=== PATIENT | female | born 1935 | race Caucasian/White ===

== ENCOUNTER 2019-01-12 14:48 | Observation (INO) | payer MEDICARE, MEDICAID ==
[2019-01-12] MEDS ORDERED: Sodium Chloride 0.9% 10 ML Syringe FLUSH PRN (14:59)
[2019-01-12] MEDS ORDERED: Sodium Chloride 0.9% 1,000 ML IV ONE (15:01)
--- NOTE | 2019-01-12 16:23 | EDM.PDOC ---
ED HPI GENERAL MEDICAL PROBLEM - General Chief Complaint: General Stated Complaint: FELL Time Seen by Provider: 01/12/19 14:52 Source of Information: Reports: Patient, Family History Limitations: Reports: No Limitations - History of Present Illness INITIAL COMMENTS - FREE TEXT/NARRATIVE: Pt. states that she felt lightheaded and fell backwards onto her backside. Denies striking her head. She has been having troubles with lightheadedness and vertigo for some time and is prescribed meclizine for it. Denies any chest pain or shortness of breath prior to the fall. She recalls the entire event. She states that she has only eaten and drank a small amount today. She did injure her back/posterior chest during the fall. Pt. denies any numbness/tingling in extremities or face. She has a history of a prior CVA that has inhibited her ambulation. For weeks to months, the patient has been complaining that her "legs don't work ". There have been discussions with the patient recently that she needs care from a LTC facility. She also complains of fatigue. Denies an bloody stools. No dark/tarry stools. Denies any abdominal pain. No nausea, vomiting, or diarrhea. She has not been chilled. Onset: Today Onset Date: 01/12/19 Location: Reports: Generalized Improves with: Reports: Rest Worsens with: Reports: Movement - Related Data Allergies Allergy/AdvReac Type Severity Reaction Status Date / Time No Known Allergies Allergy Verified 01/12/19 14:54 Home Meds: Home Meds glipiZIDE [Glipizide ER] 10 mg PO DAILY 08/25/15 [History] metFORMIN HCl [Metformin HCl] 1,000 mg PO BID 08/25/15 [History] Acetaminophen 650 mg PO Q4H PRN 05/14/18 [History] Acetaminophen [Tylenol Arthritis] 650 mg PO Q8H PRN 05/14/18 [History] Aspirin 81 mg PO DAILY 05/14/18 [History] Cholecalciferol (Vitamin D3) [D3 Dots] 2,000 unit PO DAILY 05/14/18 [History] Cyanocobalamin (Vitamin B-12) [B-12 Compliance] 1,000 mcg IJ Q30D 05/14/18 [ History] Gabapentin [Neurontin] 400 mg PO BID 05/14/18 [History] Gemfibrozil [Lopid] 600 mg PO BID 05/14/18 [History] Hydrochlorothiazide [Microzide] 12.5 mg PO DAILY 05/14/18 [History] Lisinopril 40 mg PO DAILY 05/14/18 [History] Loratadine [Claritin] 10 mg PO DAILY PRN 05/14/18 [History] Magnesium Oxide 400 mg PO DAILY 05/14/18 [History] Meclizine [Antivert] 25 mg PO BID PRN 05/14/18 [History] Metoprolol Succinate [Toprol XL] 12.5 mg PO DAILY 05/14/18 [History] Pantoprazole Sodium [Protonix] 40 mg PO DAILY 05/14/18 [History] Polyethylene Glycol 3350 [MiraLAX] 17 gm PO DAILY PRN 05/14/18 [History] Simethicone 125 mg PO Q6H PRN 05/14/18 [History] Simvastatin [Zocor] 5 mg PO ASDIRECTED 05/14/18 [History] Warfarin [Coumadin] 2.5 mg PO ASDIRECTED 05/14/18 [History] carBAMazepine [Carbamazepine ER] 400 mg PO BID 05/14/18 [History] carBAMazepine [Equetro] 300 mg PO BID 05/14/18 [History] Past Medical History - Past Health History Medical/Surgical History: Denies Medical/Surgical History HEENT History: Reports: Other (See Below) Cardiovascular History: Reports: Automatic Implantable Cardioverter Defibrillators, CAD, Heart Failure, High Cholesterol, Hypertension, Pacemaker, Other (See Below) Gastrointestinal History: Reports: Diverticulosis Musculoskeletal History: Reports: Osteoarthritis, Osteoporosis Neurological History: Reports: CVA, Neuropathy, Diabetic, Vertigo, Other (See Below) Endocrine/Metabolic History: Reports: Diabetes, Type II Hematologic History: Reports: Anemia, B12 Deficiency, Other (See Below) Oncologic (Cancer) History: Reports: Cervix Dermatologic History: Reports: Other (See Below) - Past Surgical History Female Surgical History: Reports: Hysterectomy - History Comment History Comment: Hypomagnesemia Social & Family History - Family History Family Medical History: Noncontributory - Tobacco Use Smoking Status *Q: Never Smoker - Recreational Drug Use Recreational Drug Use: No ED ROS GENERAL - Review of Systems Review Of Systems: See Below Constitutional: Reports: No Symptoms HEENT: Reports: No Symptoms Respiratory: Reports: No Symptoms Cardiovascular: Reports: No Symptoms Endocrine: Reports: No Symptoms GI/Abdominal: Reports: No Symptoms. Denies: Abdominal Pain, Anorexia, Black Stool, Bloody Stool : Reports: No Symptoms Musculoskeletal: Reports: No Symptoms Skin: Reports: No Symptoms Neurological: Reports: Difficulty Walking, Weakness, Gait Disturbance Psychiatric: Reports: No Symptoms Hematologic/Lymphatic: Reports: No Symptoms Immunologic: Reports: No Symptoms ED EXAM, GENERAL - Physical Exam Exam: See Below Exam Limited By: No Limitations General Appearance: Alert, WD/WN, No Apparent Distress Eye Exam: Bilateral Eye: EOMI, PERRL Throat/Mouth: Normal Inspection, Normal Lips, Normal Teeth, Normal Gums, No Airway Compromise, Other (oral mucosa is dry) Head: Atraumatic, Normocephalic Neck: Normal Inspection, Supple, Non-Tender, Full Range of Motion Respiratory/Chest: No Respiratory Distress, Lungs Clear, Normal Breath Sounds, No Accessory Muscle Use, Other (tenderness and large hematoma noted to R posterior chest wall. No crepitus. ) Cardiovascular: Normal Peripheral Pulses, No Edema, No Gallop, No JVD, No Murmur , No Rub, Irregularly Irregular Peripheral Pulses: 4+: Radial (R) GI/Abdominal: Soft, Non-Tender, No Organomegaly, No Distention, No Mass (Female) Exam: Deferred Rectal (Female) Exam: Deferred Back Exam: Normal Inspection, Full Range of Motion Extremities: Normal Inspection, Normal Range of Motion, Non-Tender, No Pedal Edema, Normal Capillary Refill Neurological: Alert, Oriented, CN II-XII Intact, Normal Cognition, No Motor/ Sensory Deficits, Abnormal Gait (slow and shuffling) Psychiatric: Normal Affect, Depressed Mood Skin Exam: Warm, Dry, Intact, Normal Color, Pallor Lymphatic: No Adenopathy Course - Vital Signs Last Recorded V/S: Last Vital Signs Temp 36.6 C 01/12/19 14:50 Pulse 50 L 01/12/19 14:50 Resp 14 01/12/19 14:50 BP 183/85 H 01/12/19 14:50 Pulse Ox 95 01/12/19 14:50 - Orders/Labs/Meds Orders: Active Orders 24 hr Category Date Time Status EKG Documentation Completion [RC] STAT Care 01/12/19 14:59 Active Chest 1V Frontal [CR] Stat Exams 01/12/19 16:55 Stop Req Sodium Chloride 0.9% [Saline Flush] Med 01/12/19 14:59 Active 10 ml FLUSH ASDIRECTED PRN Peripheral IV Insertion Adult [OM.PC] Routine Oth 01/12/19 14:59 Ordered Medication Orders Sodium Chloride (Saline Flush) 10 ml FLUSH ASDIRECTED PRN PRN Reason: Keep Vein Open Labs: Laboratory Tests 01/12/19 01/12/19 01/12/19 Range/Units 15:58 15:58 15:58 WBC 7.3 (4.0-10.0) x10^3/uL RBC 3.34 L (4.00-5.50) x10^6/uL Hgb 10.3 L (12.0-16.0) g/dL Hct 31.0 L (33.0-47.0) % MCV 92.8 D (78.0-93.0) fL MCH 30.8 (26.0-32.0) pg MCHC 33.2 (32.0-36.0) g/dL RDW Coeff of Tiffany 14.0 (10.0-15.0) % Plt Count 171 D (130-400) x10^3/uL Neut % (Auto) 88.1 H (50.0-80.0) % Lymph % (Auto) 5.5 L (25.0-50.0) % Curry % (Auto) 5.6 (2.0-11.0) % Eos % (Auto) 0.4 (0.0-4.0) % Baso % (Auto) 0.4 (0.2-1.2) % PT 17.3 H (10.0-12.8) SEC INR 1.5 L (2.0-3.5) Sodium 136 (136-145) mmol/L Potassium 5.6 H D (3.5-5.1) mmol/L Chloride 100 (98-107) mmol/L Carbon Dioxide 25 (21-32) mmol/L Anion Gap 16.6 (10-20) mmol/L BUN 41 H (7-18) mg/dL Creatinine 1.4 H (0.55-1.02) mg/dL Est Cr Clr Drug Dosing TNP Estimated GFR (MDRD) 36 Glucose 175 H (74-106) mg/dL Calcium 9.0 (8.5-10.1) mg/dL Corrected Calcium 9.16 (8.5-10.1) mg/dL Phosphorus 2.8 (2.6-4.7) mg/dL Magnesium 1.9 (1.8-2.4) mg/dL Total Bilirubin 0.4 (0.2-1.0) mg/dL AST 10 L (15-37) U/L ALT 11 L (14-59) U/L Alkaline Phosphatase 66 (46-116) U/L Troponin I < 0.017 (<=0.056) ng/mL C-Reactive Protein < 0.2 (<=0.9) mg/dL NT-Pro-B Natriuret Pep 512 H (<=450) pg/mL Total Protein 7.2 (6.4-8.2) g/dL Albumin 3.8 (3.4-5.0) g/dL Globulin 3.4 Albumin/Globulin Ratio 1.12 Urine Color (YELLOW) Urine Appearance (CLEAR) Urine pH (5.0-8.0) Ur Specific [place] Urine Protein (NEGATIVE) mg/dL Urine Glucose (UA) (NEGATIVE) mg/dL Urine Ketones (NEGATIVE) mg/dL Urine Occult Blood (NEGATIVE) Urine Nitrite (NEGATIVE) Urine Bilirubin (NEGATIVE) Urine Urobilinogen (0.2) EU/dL Ur Leukocyte Esterase (NEGATIVE) Urine RBC (NOT SEEN) /HPF Urine WBC (NOT SEEN) /HPF Ur Squamous Epith Cells (NEGATIVE) /HPF Urine Bacteria (NEGATIVE) /HPF Urine Mucus (NEGATIVE) /LPF 01/12/19 Range/Units 16:17 WBC (4.0-10.0) x10^3/uL RBC (4.00-5.50) x10^6/uL Hgb (12.0-16.0) g/dL Hct (33.0-47.0) % MCV (78.0-93.0) fL MCH (26.0-32.0) pg MCHC (32.0-36.0) g/dL RDW Coeff of Tiffany (10.0-15.0) % Plt Count (130-400) x10^3/uL Neut % (Auto) (50.0-80.0) % Lymph % (Auto) (25.0-50.0) % Curry % (Auto) (2.0-11.0) % Eos % (Auto) (0.0-4.0) % Baso % (Auto) (0.2-1.2) % PT (10.0-12.8) SEC INR (2.0-3.5) Sodium (136-145) mmol/L Potassium (3.5-5.1) mmol/L Chloride (98-107) mmol/L Carbon Dioxide (21-32) mmol/L Anion Gap (10-20) mmol/L BUN (7-18) mg/dL Creatinine (0.55-1.02) mg/dL Est Cr Clr Drug Dosing Estimated GFR (MDRD) Glucose (74-106) mg/dL Calcium (8.5-10.1) mg/dL Corrected Calcium (8.5-10.1) mg/dL Phosphorus (2.6-4.7) mg/dL Magnesium (1.8-2.4) mg/dL Total Bilirubin (0.2-1.0) mg/dL AST (15-37) U/L ALT (14-59) U/L Alkaline Phosphatase (46-116) U/L Troponin I (<=0.056) ng/mL C-Reactive Protein (<=0.9) mg/dL NT-Pro-B Natriuret Pep (<=450) pg/mL Total Protein (6.4-8.2) g/dL Albumin (3.4-5.0) g/dL Globulin Albumin/Globulin Ratio Urine Color Dark yellow H (YELLOW) Urine Appearance Clear (CLEAR) Urine pH 6.0 (5.0-8.0) Ur Specific [place] 1.015 Urine Protein 30 H (NEGATIVE) mg/dL Urine Glucose (UA) Negative (NEGATIVE) mg/dL Urine Ketones Negative (NEGATIVE) mg/dL Urine Occult Blood Negative (NEGATIVE) Urine Nitrite Negative (NEGATIVE) Urine Bilirubin Negative (NEGATIVE) Urine Urobilinogen 0.2 (0.2) EU/dL Ur Leukocyte Esterase Negative (NEGATIVE) Urine RBC 0-5 (NOT SEEN) /HPF Urine WBC 0-5 (NOT SEEN) /HPF Ur Squamous Epith Cells Few H (NEGATIVE) /HPF Urine Bacteria Not seen (NEGATIVE) /HPF Urine Mucus Not seen (NEGATIVE) /LPF Meds: Medications Generic Name Dose Route Start Last Admin Trade Name Freq PRN Reason Stop Dose Admin Sodium Chloride 10 ml 01/12/19 14:59 Saline Flush FLUSH ASDIRECTED PRN Keep Vein Open Discontinued Medications Generic Name Dose Route Start Last Admin Trade Name Freq PRN Reason Stop Dose Admin Sodium Chloride 1,000 mls @ 1,000 mls/hr 01/12/19 15:01 01/12/19 15:41 Normal Saline IV 01/12/19 16:00 1,000 mls/hr .BOLUS ONE Administration Departure - Departure Time of Disposition: 17:15 Disposition: Home, Self-Care 01 Condition: Good Clinical Impression: Chest wall contusion, Weakness - Discharge Information - My Orders Last 24 Hours: My Active Orders 01/12/19 14:59 EKG Documentation Completion [RC] STAT Sodium Chloride 0.9% [Saline Flush] 10 ml FLUSH ASDIRECTED PRN Peripheral IV Insertion Adult [OM.PC] Routine 01/12/19 16:55 Chest 1V Frontal [CR] Stat - Assessment/Plan Last 24 Hours: My Active Orders 01/12/19 14:59 EKG Documentation Completion [RC] STAT Sodium Chloride 0.9% [Saline Flush] 10 ml FLUSH ASDIRECTED PRN Peripheral IV Insertion Adult [OM.PC] Routine 01/12/19 16:55 Chest 1V Frontal [CR] Stat Plan: Pt. will be admitted observation. Overall I have no reason for her weakness based on her studies and physical exam today. It sounds as though she has been weak for some time but the symptoms have gotten to the point that daughter feels that she is unsafe at home. I do not have a reason for an acute admission , so at this point she will be admitted observation. PT and OT to see tomorrow. Social work consult to discuss LTC placement this week. Her chest x-ray is pending. All questions were answered. Pt. is a code 1.
[2019-01-12 16:34] LABS: ANION GAP 16.6 mmol/L (10-20); CHLORIDE,CL 100 mmol/L (98-107); SODIUM,NA 136 mmol/L (136-145)
[2019-01-12] MEDS ORDERED: Acetaminophen 500 MG Tab PO ONE (17:09)
[2019-01-12] MEDS ORDERED: Meclizine 25 MG Tab PO PRN (17:20)
[2019-01-12] MEDS ORDERED: Acetaminophen 325 MG Tab PO PRN (17:20)
[2019-01-12] MEDS ORDERED: Iopamidol 612 MG/ML 100 ML Bottle IVPUSH ONE (17:47)
[2019-01-12] MEDS ORDERED: Take Home: Acetaminophen/Codeine 300 MG/30 MG, 5 Tab Pack PO ONE (19:36)
--- NOTE | 2019-01-12 19:39 | CT ---
[id number] CT/CT Chest Abdomen Pelvis W IV EXAM: CT Chest Abdomen Pelvis W IV CLINICAL DATA: FALL, PULMONARY CONTUSION COMPARISON STUDY: None. FINDINGS: Opacity projecting over the left lung on radiograph is consistent with summation artifact from overlapping soft tissue structures. The lungs are clear. No pneumothorax. No effusion, edema, or pneumonia. Cardiomegaly. Coronary artery atherosclerosis. Left chest wall cardiac conduction device in place. Thoracic aorta atherosclerosis. No aneurysm. No evidence of acute aortic injury. Abdomen and pelvis: No solid organ injury. No free fluid in the abdomen or pelvis. Moderate stool burden in the rectum and sigmoid colon. Correlate for constipation. Colonic diverticula. No diverticulitis. No small bowel obstruction or inflammation. No evidence of viscus perforation. Bones and soft tissues: Chronic T8 compression deformity with moderate loss of vertebral body height. No evidence of an acute fracture. IMPRESSION: Lungs are clear. Opacity on radiograph is consistent with summation artifact from overlapping soft tissue structures. Overall, no acute findings in the chest, abdomen, or pelvis. Akash Beyer MD 01/12/19 1938 Thank you for allowing us to participate in the care of your patient.
[2019-01-12] MEDS ORDERED: Lisinopril 20 MG Tab PO SCH (20:00)
[2019-01-12] MEDS ORDERED: metFORMIN 500 MG Tab PO SCH (20:00)
[2019-01-12] MEDS ORDERED: CARBAMAZEPINE 400 MG PO SCH (20:00)
[2019-01-12] MEDS: Gabapentin 400 MG Cap PO SCH (20:29)
[2019-01-12] MEDS: CARBAMAZEPINE 300 MG PO SCH (20:29)
[2019-01-12] MEDS: Gemfibrozil 600 MG Tab PO SCH (20:30)
[2019-01-12] MEDS: Warfarin 5 MG Tab PO SCH (20:30)
[2019-01-13] MEDS: Gemfibrozil 600 MG Tab PO SCH ×2 (06:30→16:57)
[2019-01-13] MEDS: Pantoprazole 40 MG Tab.CR PO SCH (06:30)
[2019-01-13 06:51] LABS: ANION GAP 14.8 mmol/L (10-20)
[2019-01-13] MEDS: CARBAMAZEPINE 300 MG PO SCH ×2 (07:41→19:48)
[2019-01-13] MEDS: Hydrochlorothiazide 12.5 MG Cap PO SCH (07:42)
[2019-01-13] MEDS: Gabapentin 400 MG Cap PO SCH ×2 (07:42→19:48)
[2019-01-13] MEDS: Aspirin 81 MG Tab.Chew PO SCH (07:42)
[2019-01-13] MEDS: glipiZIDE 10 MG Tab.ER PO SCH (07:42)
[2019-01-13] MEDS: Magnesium Oxide 400 MG Tab PO SCH (07:43)
[2019-01-13] MEDS: Metoprolol Succinate 25 MG Tab.ER PO SCH (07:44)
[2019-01-13] MEDS: Cholecalciferol (Vitamin D3) 25 MCG Tab PO SCH (07:45)
[2019-01-13] MEDS ORDERED: Lisinopril 20 MG Tab PO SCH (08:00)
[2019-01-13] MEDS ORDERED: Simvastatin 10 MG Tab PO SCH (08:00)
--- NOTE | 2019-01-13 10:46 | PCM.PN ---
- General Info Date of Service: 01/13/19 Admission Dx/Problem (Free Text): Pt. admitted observation yesterday afternoon due to weakness and fall. Pt. states that she continues to feel weak today. She had a CT chest, abdomen and pelvis yesterday that was negative for acute pathology. Family states that they are unable to help patient with her ADLs and she lives on her own in an apartment so she was admitted observation while the family sets up LTC arrangements. Pt. states that she feels weak and fatigued, but denies any chest pain. No headache. No new focal neuro symptoms. Denies any fever or chills. PT and OT are seeing the patient today and social work will be assisting with placement. Functional Status: Reports: Pain Controlled, Tolerating Diet - Review of Systems General: Reports: No Symptoms HEENT: Reports: No Symptoms Pulmonary: Reports: No Symptoms Cardiovascular: Reports: No Symptoms Gastrointestinal: Reports: No Symptoms Genitourinary: Reports: No Symptoms Musculoskeletal: Reports: No Symptoms Skin: Reports: No Symptoms Neurological: Reports: No Symptoms Psychiatric: Reports: No Symptoms - Patient Data Vitals - Most Recent: Last Vital Signs Temp 35.8 C 01/13/19 10:00 Pulse 50 L 01/13/19 10:00 Resp 15 01/13/19 10:00 BP 135/95 H 01/13/19 10:00 Pulse Ox 95 01/13/19 10:00 Weight - Most Recent: 72.121 kg I&O - Last 24 Hours: Intake & Output 01/12/19 01/13/19 01/13/19 22:59 06:59 14:59 Intake Total 400 300 Output Total 600 Balance -200 300 Lab Results Last 24 Hours: Laboratory Results - last 24 hr 01/12/19 01/12/19 01/12/19 Range/Units 15:58 15:58 15:58 WBC 7.3 (4.0-10.0) x10^3/uL RBC 3.34 L (4.00-5.50) x10^6/uL Hgb 10.3 L (12.0-16.0) g/dL Hct 31.0 L (33.0-47.0) % MCV 92.8 D (78.0-93.0) fL MCH 30.8 (26.0-32.0) pg MCHC 33.2 (32.0-36.0) g/dL RDW Coeff of [place] 14.0 (10.0-15.0) % Plt Count 171 D (130-400) x10^3/uL Neut % (Auto) 88.1 H (50.0-80.0) % Lymph % (Auto) 5.5 L (25.0-50.0) % [place] % (Auto) 5.6 (2.0-11.0) % Eos % (Auto) 0.4 (0.0-4.0) % Baso % (Auto) 0.4 (0.2-1.2) % PT 17.3 H (10.0-12.8) SEC INR 1.5 L (2.0-3.5) Sodium 136 (136-145) mmol/L Potassium 5.6 H D (3.5-5.1) mmol/L Chloride 100 (98-107) mmol/L Carbon Dioxide 25 (21-32) mmol/L Anion Gap 16.6 (10-20) mmol/L BUN 41 H (7-18) mg/dL Creatinine 1.4 H (0.55-1.02) mg/dL Est Cr Clr Drug Dosing TNP Estimated GFR (MDRD) 36 Glucose 175 H (74-106) mg/dL POC Glucose (74-106) mg/dL Calcium 9.0 (8.5-10.1) mg/dL Corrected Calcium 9.16 (8.5-10.1) mg/dL Phosphorus 2.8 (2.6-4.7) mg/dL Magnesium 1.9 (1.8-2.4) mg/dL Total Bilirubin 0.4 (0.2-1.0) mg/dL AST 10 L (15-37) U/L ALT 11 L (14-59) U/L Alkaline Phosphatase 66 (46-116) U/L Troponin I < 0.017 (<=0.056) ng/mL C-Reactive Protein < 0.2 (<=0.9) mg/dL NT-Pro-B Natriuret Pep 512 H (<=450) pg/mL Total Protein 7.2 (6.4-8.2) g/dL Albumin 3.8 (3.4-5.0) g/dL Globulin 3.4 Albumin/Globulin Ratio 1.12 Urine Color (YELLOW) Urine Appearance (CLEAR) Urine pH (5.0-8.0) Ur Specific [place] Urine Protein (NEGATIVE) mg/dL Urine Glucose (UA) (NEGATIVE) mg/dL Urine Ketones (NEGATIVE) mg/dL Urine Occult Blood (NEGATIVE) Urine Nitrite (NEGATIVE) Urine Bilirubin (NEGATIVE) Urine Urobilinogen (0.2) EU/dL Ur Leukocyte Esterase (NEGATIVE) Urine RBC (NOT SEEN) /HPF Urine WBC (NOT SEEN) /HPF Ur Squamous Epith Cells (NEGATIVE) /HPF Urine Bacteria (NEGATIVE) /HPF Urine Mucus (NEGATIVE) /LPF 01/12/19 01/12/19 01/13/19 Range/Units 16:17 20:22 06:29 WBC (4.0-10.0) x10^3/uL RBC (4.00-5.50) x10^6/uL Hgb (12.0-16.0) g/dL Hct (33.0-47.0) % MCV (78.0-93.0) fL MCH (26.0-32.0) pg MCHC (32.0-36.0) g/dL RDW Coeff of [place] (10.0-15.0) % Plt Count (130-400) x10^3/uL Neut % (Auto) (50.0-80.0) % Lymph % (Auto) (25.0-50.0) % [place] % (Auto) (2.0-11.0) % Eos % (Auto) (0.0-4.0) % Baso % (Auto) (0.2-1.2) % PT (10.0-12.8) SEC INR (2.0-3.5) Sodium (136-145) mmol/L Potassium (3.5-5.1) mmol/L Chloride (98-107) mmol/L Carbon Dioxide (21-32) mmol/L Anion Gap (10-20) mmol/L BUN (7-18) mg/dL Creatinine (0.55-1.02) mg/dL Est Cr Clr Drug Dosing Estimated GFR (MDRD) Glucose (74-106) mg/dL POC Glucose 154 H 102 (74-106) mg/dL Calcium (8.5-10.1) mg/dL Corrected Calcium (8.5-10.1) mg/dL Phosphorus (2.6-4.7) mg/dL Magnesium (1.8-2.4) mg/dL Total Bilirubin (0.2-1.0) mg/dL AST (15-37) U/L ALT (14-59) U/L Alkaline Phosphatase (46-116) U/L Troponin I (<=0.056) ng/mL C-Reactive Protein (<=0.9) mg/dL NT-Pro-B Natriuret Pep (<=450) pg/mL Total Protein (6.4-8.2) g/dL Albumin (3.4-5.0) g/dL Globulin Albumin/Globulin Ratio Urine Color Dark yellow H (YELLOW) Urine Appearance Clear (CLEAR) Urine pH 6.0 (5.0-8.0) Ur Specific [place] 1.015 Urine Protein 30 H (NEGATIVE) mg/dL Urine Glucose (UA) Negative (NEGATIVE) mg/dL Urine Ketones Negative (NEGATIVE) mg/dL Urine Occult Blood Negative (NEGATIVE) Urine Nitrite Negative (NEGATIVE) Urine Bilirubin Negative (NEGATIVE) Urine Urobilinogen 0.2 (0.2) EU/dL Ur Leukocyte Esterase Negative (NEGATIVE) Urine RBC 0-5 (NOT SEEN) /HPF Urine WBC 0-5 (NOT SEEN) /HPF Ur Squamous Epith Cells Few H (NEGATIVE) /HPF Urine Bacteria Not seen (NEGATIVE) /HPF Urine Mucus Not seen (NEGATIVE) /LPF 01/13/19 01/13/19 Range/Units 06:33 06:33 WBC 5.4 (4.0-10.0) x10^3/uL RBC 3.36 L (4.00-5.50) x10^6/uL Hgb 10.4 L (12.0-16.0) g/dL Hct 31.6 L (33.0-47.0) % MCV 94.0 H (78.0-93.0) fL MCH 31.0 (26.0-32.0) pg MCHC 32.9 (32.0-36.0) g/dL RDW Coeff of [place]iffany 14.2 (10.0-15.0) % Plt Count 193 (130-400) x10^3/uL Neut % (Auto) 56.8 (50.0-80.0) % Lymph % (Auto) 28.8 (25.0-50.0) % [place] % (Auto) 11.3 H (2.0-11.0) % Eos % (Auto) 2.2 (0.0-4.0) % Baso % (Auto) 0.9 (0.2-1.2) % PT (10.0-12.8) SEC INR (2.0-3.5) Sodium 139 (136-145) mmol/L Potassium 4.8 (3.5-5.1) mmol/L Chloride 102 (98-107) mmol/L Carbon Dioxide 27 (21-32) mmol/L Anion Gap 14.8 (10-20) mmol/L BUN 32 H (7-18) mg/dL Creatinine 1.2 H (0.55-1.02) mg/dL Est Cr Clr Drug Dosing 25.07 Estimated GFR (MDRD) 43 Glucose 101 (74-106) mg/dL POC Glucose (74-106) mg/dL Calcium 9.2 (8.5-10.1) mg/dL Corrected Calcium (8.5-10.1) mg/dL Phosphorus (2.6-4.7) mg/dL Magnesium (1.8-2.4) mg/dL Total Bilirubin (0.2-1.0) mg/dL AST (15-37) U/L ALT (14-59) U/L Alkaline Phosphatase (46-116) U/L Troponin I (<=0.056) ng/mL C-Reactive Protein (<=0.9) mg/dL NT-Pro-B Natriuret Pep (<=450) pg/mL Total Protein (6.4-8.2) g/dL Albumin (3.4-5.0) g/dL Globulin Albumin/Globulin Ratio Urine Color (YELLOW) Urine Appearance (CLEAR) Urine pH (5.0-8.0) Ur Specific [place] Urine Protein (NEGATIVE) mg/dL Urine Glucose (UA) (NEGATIVE) mg/dL Urine Ketones (NEGATIVE) mg/dL Urine Occult Blood (NEGATIVE) Urine Nitrite (NEGATIVE) Urine Bilirubin (NEGATIVE) Urine Urobilinogen (0.2) EU/dL Ur Leukocyte Esterase (NEGATIVE) Urine RBC (NOT SEEN) /HPF Urine WBC (NOT SEEN) /HPF Ur Squamous Epith Cells (NEGATIVE) /HPF Urine Bacteria (NEGATIVE) /HPF Urine Mucus (NEGATIVE) /LPF Med Orders - Current: Current Medications Acetaminophen (Tylenol) 650 mg PO Q4H PRN PRN Reason: Pain Aspirin (Aspirin) 81 mg PO DAILY [facility] Last Admin: 01/13/19 07:42 Dose: 81 mg Cholecalciferol (Vitamin D3) 50 mcg PO DAILY [facility] Last Admin: 01/13/19 07:45 Dose: 50 mcg Cyanocobalamin (Vitamin B12) 1,000 mcg IM Q30D [facility] Gabapentin (Neurontin) 400 mg PO BID [facility] Last Admin: 01/13/19 07:42 Dose: 400 mg Gemfibrozil (Lopid) 600 mg PO BIDAC [facility] Last Admin: 01/13/19 06:30 Dose: 600 mg Glipizide (Glucotrol Xl) 10 mg PO DAILY [facility] Last Admin: 01/13/19 07:42 Dose: 10 mg Hydrochlorothiazide (Hydrochlorothiazide) 12.5 mg PO DAILY [facility] Last Admin: 01/13/19 07:42 Dose: 12.5 mg Lisinopril (Prinivil) 40 mg PO DAILY@1200 [facility] Magnesium Oxide (Magnesium Oxide) 400 mg PO DAILY [facility] Last Admin: 01/13/19 07:43 Dose: 400 mg Meclizine HCl (Antivert) 25 mg PO BID PRN PRN Reason: Dizziness Metoprolol Succinate (Toprol Xl) 12.5 mg PO DAILY [facility] Last Admin: 01/13/19 07:44 Dose: 12.5 mg Carbamazepine Er (300mg Own Med ) 300 mg PO BID [facility] Last Admin: 01/13/19 07:41 Dose: 300 mg Pantoprazole Sodium (Protonix) 40 mg PO ACBREAKFAST [facility] Last Admin: 01/13/19 06:30 Dose: 40 mg Simvastatin (Zocor) 5 mg PO MoWeFr@0800 [facility] Last Admin: 01/13/19 07:43 Dose: 5 mg Sodium Chloride (Saline Flush) 10 ml FLUSH ASDIRECTED PRN PRN Reason: Keep Vein Open Last Admin: 01/12/19 20:29 Dose: 10 ml Warfarin Sodium (Coumadin) 10 mg PO DAILY@2000 [facility] Last Admin: 01/12/19 20:30 Dose: 10 mg Discontinued Medications Acetaminophen (Tylenol Extra Strength) 1,000 mg PO ONETIME ONE Stop: 01/12/19 17:10 Last Admin: 01/12/19 17:16 Dose: 1,000 mg Acetaminophen/Codeine Phosphate (Take Home: Acetam/Codeine 300-30 Mg, 5 Pack) 1 packet PO ONETIME ONE Stop: 01/12/19 19:37 Last Admin: 01/12/19 20:00 Dose: Not Given Sodium Chloride (Normal Saline) 1,000 mls @ 1,000 mls/hr IV .BOLUS ONE Stop: 01/12/19 16:00 Last Admin: 01/12/19 15:41 Dose: 1,000 mls/hr Iopamidol (Isovue-300 (61%)) 100 ml IVPUSH ONETIME ONE Stop: 01/12/19 17:48 Last Admin: 01/12/19 18:26 Dose: 100 ml Lisinopril (Prinivil) 40 mg PO DAILY [facility] Lisinopril (Prinivil) 40 mg PO DAILY [facility] Stop: 01/12/19 21:00 Last Admin: 01/12/19 20:29 Dose: 40 mg Metformin HCl (Glucophage) 1,000 mg PO BIDMEALS [facility] Non-Formulary Medication (Carbamazepine [Carbamazepine Er]) 400 mg PO BID [facility] - Exam General: Alert, Oriented HEENT: Pupils Equal, Pupils Reactive, EOMI, Mucous Membr. Moist/[place] Neck: Supple Lungs: Clear to Auscultation, Normal Respiratory Effort, Other (contusion noted to R posterior chest) Cardiovascular: Regular Rate, Regular Rhythm GI/Abdominal Exam: Normal Bowel Sounds, Soft, Non-Tender, No Organomegaly, No Distention, No Mass (Female) Exam: Deferred Back Exam: Normal Inspection, Full Range of Motion Extremities: Normal Inspection, Normal Range of Motion, Non-Tender, No Pedal Edema, Normal Capillary Refill Peripheral Pulses: 4+: Radial (L) Skin: Warm, Dry, Intact Neurological: No New Focal Deficit, Other (globally weak without acute findings. ) Psy/Mental Status: Alert, Normal Affect, Normal Mood - Problem List & Annotations (1) Chest wall contusion SNOMED Code(s): 37328962 Code(s): S20.219A - CONTUSION OF UNSPECIFIED FRONT WALL OF THORAX, INIT ENCNTR Status: Acute Current Visit: Yes (2) Fall SNOMED Code(s): 4045309, 086506789 Code(s): W19.XXXA - UNSPECIFIED FALL, INITIAL ENCOUNTER Status: Acute Current Visit: Yes (3) Weakness SNOMED Code(s): 44302655 Code(s): R53.1 - WEAKNESS Status: Acute Current Visit: Yes - Problem List Review Problem List Initiated/Reviewed/Updated: Yes - My Orders Last 24 Hours: My Active Orders 01/12/19 14:59 EKG Documentation Completion [RC] STAT Sodium Chloride 0.9% [Saline Flush] 10 ml FLUSH ASDIRECTED PRN Peripheral IV Insertion Adult [OM.PC] Routine 01/12/19 16:56 Patient Status [ADT] Routine 01/12/19 17:08 Chest 1V Frontal [CR] Stat 01/12/19 17:15 Up With Assistance [RC] 01/12/19 17:16 Code Status [Resuscitation Status] Routine 01/12/19 17:17 Consult to Physical Therapy [PT Evaluation and Treatment] [CONS] Routine 01/12/19 17:18 Consult to Case Management/Clinical Research Management Associate [CONS] Routine OT Evaluation and Treatment [CONS] Routine 01/12/19 17:20 Acetaminophen [Tylenol] 650 mg PO Q4H PRN Meclizine [Antivert] 25 mg PO BID PRN 01/12/19 20:00 Gabapentin [Neurontin] 400 mg PO BID Gemfibrozil [Lopid] 600 mg PO BIDAC Warfarin [Coumadin] 10 mg PO DAILY@2000 carBAMazepine [Carbamazepine ER] 300 mg PO BID 01/12/19 20:39 Accu Check [Blood Glucose Check, Bedside] [RC] 07,,,20 01/12/19 Dinner [employer] [place] Diet [DIET] 01/13/19 07:00 Pantoprazole [ProTONIX] 40 mg PO ACBREAKFAST 01/13/19 08:00 Aspirin 81 mg PO DAILY Cholecalciferol (Vitamin D3) [Vitamin D3] 50 mcg PO DAILY Magnesium Oxide 400 mg PO DAILY Metoprolol Succinate [Toprol XL] 12.5 mg PO DAILY Simvastatin [Zocor] 5 mg PO MoWeFr@0800 glipiZIDE [Glucotrol XL] 10 mg PO DAILY hydroCHLOROthiazide 12.5 mg PO DAILY 01/13/19 12:00 Lisinopril [Prinivil] 40 mg PO DAILY@1200 01/21/19 10:00 Cyanocobalamin (Vitamin B12) [Vitamin B12] 1,000 mcg IM Q30D - Plan Plan:: Pt. 48 hour obs admission is up tomorrow afternoon. At the time, pt. will either need to go self pay swing or be discharged. Family is aware of this. PT and OT will work with patient today. Social work is not here until later this afternoon and will meet with patient. Her labs this AM are unchanged. Discussed findings with the patient and family. All questions were answered.
[2019-01-13] MEDS: Lisinopril 20 MG Tab PO SCH (11:28)
[2019-01-13] MEDS ORDERED: Iopamidol 612 MG/ML 100 ML Bottle IVPUSH ONE (17:07)
--- NOTE | 2019-01-13 18:15 | CT ---
[id number] CT/CTA Head EXAM: HEAD CT WITHOUT CONTRAST CT ANGIOGRAM HEAD INDICATION: Forgetfulness. COMPARISON: None. 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 Partial opacification of both sphenoid sinuses including mucosal thickening and fluid with osseous wall hypertrophy suggesting acute on chronic sinusitis. Minor scattered mucosal thickening in the remaining paranasal sinuses. origin left posterior cerebral artery. Dominant left vertebral artery. Scattered hard plaque most significant in the intracranial segment of the left vertebral artery and in the cavernous segment of both internal carotid arteries. No significant stenosis, aneurysm, vessel cut off or other acute findings. IMPRESSION: 1. Mild to moderate generalized atrophy and chronic small vessel ischemic changes. 2. Multifocal atherosclerotic plaque with no significant stenosis, vessel cut off or other acute vascular findings. 3. 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 Jamison Price MD 01/13/19 [id number] Thank you for allowing us to participate in the care of your patient.
[2019-01-13] MEDS: Warfarin 5 MG Tab PO SCH (19:48)
[2019-01-13] MEDS ORDERED: Amoxicillin/Clavulanate K 875-125 MG Tab PO SCH (20:00)
[2019-01-13] MEDS: Amoxicillin/Clavulanate K 500-125 MG Tab PO SCH (20:15)
[2019-01-14] MEDS: Pantoprazole 40 MG Tab.CR PO SCH (06:01)
[2019-01-14] MEDS: Gemfibrozil 600 MG Tab PO SCH (06:01)
[2019-01-14] MEDS: Metoprolol Succinate 25 MG Tab.ER PO SCH (07:30)
[2019-01-14] MEDS: Magnesium Oxide 400 MG Tab PO SCH (07:30)
[2019-01-14] MEDS: glipiZIDE 10 MG Tab.ER PO SCH (07:30)
[2019-01-14] MEDS: Aspirin 81 MG Tab.Chew PO SCH (07:30)
[2019-01-14] MEDS: Hydrochlorothiazide 12.5 MG Cap PO SCH (07:30)
[2019-01-14] MEDS: Amoxicillin/Clavulanate K 500-125 MG Tab PO SCH (07:30)
[2019-01-14] MEDS: Cholecalciferol (Vitamin D3) 25 MCG Tab PO SCH (07:31)
[2019-01-14] MEDS: CARBAMAZEPINE 300 MG PO SCH (07:31)
[2019-01-14] MEDS: Gabapentin 400 MG Cap PO SCH (07:31)
[2019-01-14 10:19] VITALS: PULSE 50
[2019-01-14] MEDS: Lisinopril 20 MG Tab PO SCH (12:00)
[2019-01-14] MEDS ORDERED: CARBAMAZEPINE 400 MG PO PRN (12:15)
[2019-01-14 14:16] VITALS: BP 164/54
[2019-01-14] MEDS ORDERED: Aspirin 81 MG Tab.Chew PO SCH (20:00)
[2019-01-21] MEDS ORDERED: Cyanocobalamin (Vitamin B12) 1,000 MCG/ML SDV IM SCH (10:00)
--- NOTE | 2019-01-23 13:08 | CR ---
[id number] RAD/RAD Chest PA or AP 1V EXAM: RAD Chest PA or AP 1V INDICATION: Fall, posterior CHEST PAIN POST FALL. COMPARISON: May 2018. DISCUSSION: Cardiomegaly and central vascular congestion. Lung hyperinflation, consistent with chronic obstructive pulmonary disease. No pneumothorax. Parenchymal opacity over the left lower lung not seen previously. Finding is nonspecific. Differential diagnosis includes contusion pneumonia, and/or subsegmental atelectasis. IMPRESSION: Left lung base parenchymal opacity not seen previously, described above. Akash Beyer MD 01/23/19 1274 Thank you for allowing us to participate in the care of your patient.
== END 2019-01-14 15:40 | disposition home or self-care (01) ==
LOC: VM.ED 14:48 → VM.MS 16:56
PROVIDERS: ADMIT Physician Assistant; ATTEND Physician Assistant
DX: R53.1 Weakness (principal); R53.83 Other fatigue; S20.219A Contusion of unspecified front wall of thorax, initial encounter; I25.10 Atherosclerotic heart disease of native coronary artery without angina pectoris; I11.0 Hypertensive heart disease with heart failure; I50.9 Heart failure, unspecified; E11.9 Type 2 diabetes mellitus without complications; E78.00 Pure hypercholesterolemia, unspecified; W19.XXXA Unspecified fall, initial encounter; Z95.810 Presence of automatic (implantable) cardiac defibrillator; Z86.73 Personal history of transient ischemic attack (TIA), and cerebral infarction without residual deficits; Z79.84 Long term (current) use of oral hypoglycemic drugs; Z79.82 Long term (current) use of aspirin; Z79.01 Long term (current) use of anticoagulants; Z79.899 Other long term (current) drug therapy
CPT/HCPCS: 36415; 70496; 71045; 71260; 74177; 80048; 80053; 81001; 82962; 83735; 83880; 84100; 84484; 85025; 85610; 86140; 93005; 96360; 97161; 97165; 97530; 97535; 99217; 99220; 99225; 99285; A9270; G0378; J7030; Q9967

== ENCOUNTER 2019-01-14 15:35 | Inpatient (IN) | payer MEDICARE, MEDICAID ==
[2019-01-14] MEDS ORDERED: Loratadine 10 MG Tab PO PRN (16:58)
[2019-01-14] MEDS ORDERED: Polyethylene Glycol 3350 Powder 17 GM Packet PO PRN (16:58)
[2019-01-14] MEDS ORDERED: Meclizine 25 MG Tab PO PRN (16:58)
--- NOTE | 2019-01-14 18:48 | PCM.PN ---
- General Info Date of Service: 01/14/19 Admission Dx/Problem (Free Text): Patient admitted for weakness, falls. - Review of Systems General: Reports: Weakness (improved) HEENT: Reports: No Symptoms Pulmonary: Reports: Shortness of Breath (states this is a chronic finding) Cardiovascular: Reports: No Symptoms Gastrointestinal: Reports: No Symptoms Genitourinary: Reports: No Symptoms Musculoskeletal: Reports: No Symptoms Skin: Reports: No Symptoms Neurological: Reports: No Symptoms Psychiatric: Reports: No Symptoms - Patient Data Vitals - Most Recent: Last Vital Signs Temp 35.8 C 01/14/19 18:30 Pulse 55 L 01/14/19 18:30 Resp BP 129/43 L 01/14/19 18:30 Pulse Ox 98 01/14/19 18:30 Weight - Most Recent: 70.789 kg I&O - Last 24 Hours: Intake & Output 01/14/19 01/14/19 01/14/19 06:59 14:59 22:59 Intake Total 120 Balance 120 Lab Results Last 24 Hours: Laboratory Results - last 24 hr 01/14/19 Range/Units 17:27 POC Glucose 90 (74-106) mg/dL Med Orders - Current: Current Medications Acetaminophen (Tylenol) 650 mg PO Q4H PRN PRN Reason: Pain Amoxicillin/Clavulanate Potassium (Augmentin 500 Mg\125 Mg) 1 tab PO Q12HR [facility] Stop: 01/18/19 08:30 Aspirin (Aspirin) 81 mg PO BEDTIME [facility] Gabapentin (Neurontin) 400 mg PO BID [facility] Gemfibrozil (Lopid) 600 mg PO BIDAC [facility] Glipizide (Glucotrol Xl) 10 mg PO DAILY [facility] Hydrochlorothiazide (Hydrochlorothiazide) 12.5 mg PO DAILY [facility] Lisinopril (Prinivil) 40 mg PO 1200 [facility] Loratadine (Claritin) 10 mg PO DAILY PRN PRN Reason: Allergies Meclizine HCl (Antivert) 25 mg PO BID PRN PRN Reason: Dizziness Metformin HCl (Glucophage) 500 mg PO BID [facility] Metoprolol Succinate (Toprol Xl) 12.5 mg PO DAILY [facility] Carbamazepine [ Equetro] 300 Mg # Ptom# 300 mg PO [facility] Pantoprazole Sodium (Protonix) 40 mg PO DAILY@0700 [facility] Polyethylene Glycol (Miralax) 17 gm PO DAILY PRN PRN Reason: Constipation Simvastatin (Zocor) 5 mg PO MOWEFR@1999 [facility] Discontinued Medications Warfarin Sodium (Coumadin) 2.5 mg PO ASDIRECTED ONE Stop: 01/14/19 17:01 - Exam General: Alert, Oriented, Cooperative HEENT: Pupils Equal, Pupils Reactive, EOMI, Mucous Membr. Moist/[place] Neck: Supple Lungs: Clear to Auscultation, Normal Respiratory Effort Cardiovascular: Regular Rate, Regular Rhythm GI/Abdominal Exam: Normal Bowel Sounds, Soft, Non-Tender, No Organomegaly, No Distention, No Abnormal Bruit, No Mass, Pelvis Stable Back Exam: Normal Inspection, Full Range of Motion Extremities: Normal Inspection, Normal Range of Motion, Non-Tender, No Pedal Edema, Normal Capillary Refill Peripheral Pulses: 2+: Posterior Tibial (L), Posterior Tibial (R), Dorsalis Pedis (L), Dorsalis Pedis (R) Skin: Warm, Dry, Intact Neurological: No New Focal Deficit Psy/Mental Status: Alert, Normal Affect, Normal Mood - Problem List & Annotations (1) Weakness SNOMED Code(s): 88053978 Code(s): R53.1 - WEAKNESS Status: Acute Priority: Medium Current Visit : No - Problem List Review Problem List Initiated/Reviewed/Updated: Yes - Assessment Assessment:: weakness - Plan Plan:: Patient will be transitioned to self pay swing until senior living placement is achieved. Dr. Don to take over in the AM.
[2019-01-14] MEDS: Gabapentin 400 MG Cap PO SCH (19:22)
[2019-01-14] MEDS: Amoxicillin/Clavulanate K 500-125 MG Tab PO SCH (19:22)
[2019-01-14] MEDS: Gemfibrozil 600 MG Tab PO SCH (19:22)
[2019-01-14] MEDS ORDERED: metFORMIN 500 MG Tab PO ONE (20:00)
[2019-01-14] MEDS ORDERED: metFORMIN 500 MG Tab PO SCH (20:00)
[2019-01-14] MEDS: Acetaminophen 325 MG Tab PO PRN (21:08)
[2019-01-14] MEDS: CARBAMAZEPINE 300 MG PO SCH (21:10)
[2019-01-15] MEDS: Acetaminophen 325 MG Tab PO PRN ×3 (02:00→21:27)
[2019-01-15] MEDS: Warfarin 2.5 MG Tab PO ONE ×2 (04:13→07:43)
[2019-01-15] MEDS: Gemfibrozil 600 MG Tab PO SCH ×2 (05:57→06:00)
[2019-01-15] MEDS: Pantoprazole 40 MG Tab.CR PO SCH ×2 (05:57→06:00)
[2019-01-15] MEDS ORDERED: glipiZIDE 10 MG Tab.ER PO SCH (08:00)
[2019-01-15] MEDS ORDERED: Metoprolol Succinate 25 MG Tab.ER PO SCH (08:00)
[2019-01-15] MEDS ORDERED: Hydrochlorothiazide 12.5 MG Cap PO SCH (08:00)
[2019-01-15] MEDS ORDERED: metFORMIN 500 MG Tab PO SCH (08:00)
[2019-01-15] MEDS: Gabapentin 400 MG Cap PO SCH (08:05)
[2019-01-15] MEDS: CARBAMAZEPINE 300 MG PO SCH ×2 (08:05→21:27)
[2019-01-15] MEDS: Amoxicillin/Clavulanate K 500-125 MG Tab PO SCH (08:06)
--- NOTE | 2019-01-15 08:13 | PCM.HP ---
H&P History of Present Illness - General Date of Service: 01/15/19 Admit Problem/Dx: weakness, falls Source of Information: Patient History Limitations: Reports: No Limitations - History of Present Illness Initial Comments - Free Text/Narative: Mrs. Gamino is an 83 yo female with PMH of hypertension, CAD, cerebrovascular disease, valvular heart disease, atrial fibrillation s/p ablation, chronic rhinitis, hyperlipidemia, type 2 DM, trigeminal neuralgia, GERD, osteoporosis, and OA who was initially admitted to observation after family noted increased weakness after a fall. Her work-up in the ER was unremarkable but it was not felt she was safe to return home. The patient and family have come to the decision for her to transition to the care center. Therefore, she is now admitted to swing bed while awaiting a bed availability. Although she is not overly happy about it, the patient voices that she is ready to make the transition after the fall she had last weekend. She states that her walker tipped over on her, leading her to fall. She sustained extensive bruising to her back but has not had pain from this and her work-up in the ER was negative for any fractures. She denies pain anywhere else. She notes generalized weakness that has slowly been getting worse. She has intermittent dizziness but denies that this has been worse lately. She denies that dizziness was a contributor to her fall. She has been eating and drinking well and denies any nausea, vomiting, or difficulty with her bowel movements. No fever or s/s of infection. She has chronic shortness of breath that has been stable as of late. She is having a lot of pain from her trigeminal neuralgia today but has not had any unusual headaches and has not had any focal neurologic symptoms. Bilateral Face/Facial Pain Score (Numeric/FACES): 10 - Related Data Allergies/Adverse Reactions: Allergies Allergy/AdvReac Type Severity Reaction Status Date / Time No Known Allergies Allergy Verified 01/12/19 14:54 Home Medications: Home Meds glipiZIDE [Glipizide ER] 10 mg PO DAILY 08/25/15 [History] metFORMIN HCl [Metformin HCl] 500 mg PO BID 08/25/15 [History] Acetaminophen 650 mg PO Q4H PRN 05/14/18 [History] Aspirin 81 mg PO BEDTIME 05/14/18 [History] Cholecalciferol (Vitamin D3) [D3 Dots] 50 mcg PO DAILY 05/14/18 [History] Cyanocobalamin (Vitamin B-12) [B-12 Compliance] 1,500 mcg IJ Q30D 05/14/18 [ History] Gabapentin [Neurontin] 400 mg PO BID 05/14/18 [History] Gemfibrozil [Lopid] 600 mg PO BID 05/14/18 [History] Hydrochlorothiazide [Microzide] 12.5 mg PO DAILY 05/14/18 [History] Lisinopril 40 mg PO 1200 05/14/18 [History] Loratadine [Claritin] 10 mg PO DAILY PRN 05/14/18 [History] Magnesium Oxide 400 mg PO DAILY 05/14/18 [History] Meclizine [Antivert] 25 mg PO BID PRN 05/14/18 [History] Metoprolol Succinate [Toprol XL] 12.5 mg PO DAILY 05/14/18 [History] Pantoprazole Sodium [Protonix] 40 mg PO DAILY 05/14/18 [History] Polyethylene Glycol 3350 [MiraLAX] 17 gm PO DAILY PRN 05/14/18 [History] Simethicone 125 mg PO Q6H PRN 05/14/18 [History] Simvastatin [Zocor] 5 mg PO MOWEFR@199905/14/18 [History] Warfarin [Coumadin] 2.5 mg PO ASDIRECTED 05/14/18 [History] carBAMazepine [Carbamazepine ER] 400 mg PO BID PRN 05/14/18 [History] carBAMazepine [Equetro] 300 mg PO 09,21 05/14/18 [History] Past Medical History HEENT History: Reports: Allergic Rhinitis Cardiovascular History: Reports: Afib, Automatic Implantable Cardioverter Defibrillators, CAD, High Cholesterol, Hypertension, Pacemaker Respiratory History: Reports: None Gastrointestinal History: Reports: Chronic Constipation, Diverticulosis, GERD Musculoskeletal History: Reports: Osteoarthritis, Osteoporosis Neurological History: Reports: CVA, Neuropathy, Peripheral, Vertigo, Other (See Below) (trigeminal neuralgia) Psychiatric History: Reports: None Endocrine/Metabolic History: Reports: Diabetes, Type II, Vitamin D Deficiency, Other (See Below) (B12 deficiency, hypomagnesemia) Hematologic History: Reports: Anemia, B12 Deficiency Immunologic History: Reports: None Oncologic (Cancer) History: Reports: Cervix Dermatologic History: Reports: Other (See Below) - Infectious Disease History Infectious Disease History: Reports: None - Past Surgical History Cardiovascular Surgical History: Reports: AICD, Pacer, Other (See Below) ( catheterization) GI Surgical History: Reports: Appendectomy, Cholecystectomy, Colonoscopy Female Surgical History: Reports: Hysterectomy Musculoskeletal Surgical History: Reports: Knee Replacement Social & Family History - Family History Cardiac: Reports: CAD Neurological: Reports: CVA, Dementia Oncologic: Reports: Lung, Pancreatic - Tobacco Use Smoking Status *Q: Never Smoker - Caffeine Use Caffeine Use: Reports: Coffee - Alcohol Use Alcohol Use History: No Alcohol Use in Last Twelve Months: No - Recreational Drug Use Recreational Drug Use: No - Living Situation & Occupation Living situation: Reports: , Alone Occupation: Retired H&P Review of Systems - Review of Systems: Review Of Systems: See Below General: Reports: No Symptoms HEENT: Reports: No Symptoms Pulmonary: Reports: No Symptoms Cardiovascular: Reports: No Symptoms Gastrointestinal: Reports: No Symptoms Genitourinary: Reports: No Symptoms Musculoskeletal: Reports: No Symptoms Skin: Reports: No Symptoms Psychiatric: Reports: No Symptoms Neurological: Reports: No Symptoms Exam - Exam Exam: See Below - Vital Signs Vital Signs: Last Vital Signs Temp 35.3 C 01/15/19 05:48 Pulse 66 01/15/19 08:05 Resp 12 01/15/19 05:48 BP 159/64 H 01/15/19 08:05 Pulse Ox 94 L 01/15/19 05:48 Weight: 70.789 kg - Exam General: Alert, Oriented, Cooperative, Moderate Distress (secondary to facial pain) HEENT: Conjunctiva Clear, Mucosa Moist & [place], Pupils Equal, Pupils Reactive Neck: Supple, Trachea Midline. No: Lymphadenopathy, Thyromegaly Lungs: Clear to Auscultation, Normal Respiratory Effort Cardiovascular: Regular Rate, Regular Rhythm, Normal S1, Normal S2 GI/Abdominal Exam: Normal Bowel Sounds, Soft, Non-Tender, No Organomegaly, No Distention, No Mass Back Exam: Other (large developing ecchymosis right upper back without associated tenderness to palpation) Extremities: Non-Tender, No Pedal Edema, Normal Capillary Refill Peripheral Pulses: 2+: Radial (L), Radial (R) Skin: Warm, Dry, Intact - Patient Data Lab Results Last 24 hrs: Laboratory Results - last 24 hr 0801/14/19 01/15/19 Range/Units 17:27 19:26 06:31 PT 15.0 H (10.0-12.8) SEC INR 1.3 L (2.0-3.5) POC Glucose 90 156 H (74-106) mg/dL - Problem List (1) Weakness SNOMED Code(s): 38076274 ICD Code: R53.1 - WEAKNESS Status: Chronic Priority: Medium Current Visit: No (2) Fall SNOMED Code(s): 9673257, 540438624 ICD Code: W19.XXXA - UNSPECIFIED FALL, INITIAL ENCOUNTER Status: Acute Current Visit: No Qualifiers: Encounter type: initial encounter Qualified Code(s): W19.XXXA - Unspecified fall, initial encounter (3) Chest wall contusion SNOMED Code(s): 67548480 ICD Code: S20.219A - CONTUSION OF UNSPECIFIED FRONT WALL OF THORAX, INIT ENCNTR Status: Acute Current Visit: No Qualifiers: Encounter type: initial encounter Laterality: right Qualified Code(s): S20.211A - Contusion of right front wall of thorax, initial encounter (4) Pacemaker SNOMED Code(s): 395502592 ICD Code: Z95.0 - PRESENCE OF CARDIAC PACEMAKER Status: Chronic Current Visit: Yes (5) Atrial fibrillation SNOMED Code(s): 46394963 ICD Code: I48.91 - UNSPECIFIED ATRIAL FIBRILLATION Status: Chronic Current Visit: Yes Qualifiers: Atrial fibrillation type: persistent Qualified Code(s): I48.1 - Persistent atrial fibrillation (6) Trigeminal neuralgia SNOMED Code(s): 28908126 ICD Code: G50.0 - TRIGEMINAL NEURALGIA Status: Chronic Current Visit: Yes (7) Neuropathy SNOMED Code(s): 427777251 ICD Code: G62.9 - POLYNEUROPATHY, UNSPECIFIED Status: Chronic Current Visit: No (8) Anemia SNOMED Code(s): 088734139 ICD Code: D64.9 - ANEMIA, UNSPECIFIED Status: Chronic Current Visit: No Qualifiers: Anemia type: iron deficiency Iron deficiency anemia type: unspecified iron deficiency Qualified Code(s): D50.9 - Iron deficiency anemia, unspecified (9) B12 deficiency SNOMED Code(s): 283206768 ICD Code: E53.8 - DEFICIENCY OF OTHER SPECIFIED B GROUP VITAMINS Status: Chronic Current Visit: No (10) CAD (coronary artery disease) SNOMED Code(s): 11007137 ICD Code: I25.10 - ATHSCL HEART DISEASE OF [place] CORONARY ARTERY W/O ANG PCTRS Status: Chronic Current Visit: No (11) Hypercholesteremia SNOMED Code(s): 14636702 ICD Code: E78.00 - PURE HYPERCHOLESTEROLEMIA, UNSPECIFIED Status: Chronic Current Visit: No (12) Hypertension SNOMED Code(s): 94260471 ICD Code: I10 - ESSENTIAL (PRIMARY) HYPERTENSION Status: Chronic Current Visit: No Qualifiers: Hypertension type: essential hypertension Qualified Code(s): I10 - Essential (primary) hypertension (13) DM2 (diabetes mellitus, type 2) SNOMED Code(s): 77565371 ICD Code: E11.9 - TYPE 2 DIABETES MELLITUS WITHOUT COMPLICATIONS Status: Chronic Current Visit: No Qualifiers: Diabetes mellitus penitentiary insulin use: without penitentiary use Diabetes mellitus complication status: without complication Qualified Code(s): E11.9 - Type 2 diabetes mellitus without complications (14) Osteoarthritis SNOMED Code(s): 319660019 ICD Code: M19.90 - UNSPECIFIED OSTEOARTHRITIS, UNSPECIFIED SITE Status: Chronic Current Visit: No Qualifiers: Osteoarthritis location: multiple joints Osteoarthritis type: primary Qualified Code(s): M15.0 - Primary generalized (osteo)arthritis (15) Osteoporosis SNOMED Code(s): 86723365 ICD Code: M81.0 - AGE-RELATED OSTEOPOROSIS W/O CURRENT PATHOLOGICAL FRACTURE Status: Chronic Current Visit: No Qualifiers: Osteoporosis type: age-related Presence of current pathological fracture: without current pathological fracture Qualified Code(s): M81.0 - Age-related osteoporosis without current pathological fracture (16) Sinusitis SNOMED Code(s): 98731906 ICD Code: J32.9 - CHRONIC SINUSITIS, UNSPECIFIED Status: Acute Current Visit: Yes Qualifiers: Sinusitis location: pansinusitis Chronicity: acute Recurrence: non- recurrent Qualified Code(s): J01.40 - Acute pansinusitis, unspecified Problem List Initiated/Reviewed/Updated: Yes Orders Last 24hrs: Active Orders 24 hr Category Date Time Status Admission Status [Patient Status] [ADT] Routine ADT 01/14/19 15:36 Active Accu Check [Blood Glucose Check, Bedside] [] 07,11,17 Care 01/14/19 17:00 Active ,20 Dietary Supplements [] 10,14 Care 01/14/19 15:51 Active ADA Diabetic [[place] [employer] Diet] [DIET Diet 01/14/19 Dinner Active ] Acetaminophen [Tylenol] Med 01/14/19 16:58 Active 650 mg PO Q4H PRN Amoxicillin/Clavulanate K [Augmentin 500 MG\125 MG] Med 01/14/19 20:00 Active 1 tab PO Q12HR Aspirin Med 01/15/19 20:00 Active 81 mg PO BEDTIME Gabapentin [Neurontin] Med 01/14/19 20:00 Active 400 mg PO BID Gemfibrozil [Lopid] Med 01/14/19 20:00 Active 600 mg PO BIDAC Lisinopril [Prinivil] Med 01/15/19 12:00 Active 40 mg PO 1200 Loratadine [Claritin] Med 01/14/19 16:58 Active 10 mg PO DAILY PRN Meclizine [Antivert] Med 01/14/19 16:58 Active 25 mg PO BID PRN Metoprolol Succinate [Toprol XL] Med 01/15/19 08:00 Active 12.5 mg PO DAILY Pantoprazole [ProTONIX] Med 01/15/19 07:00 Active 40 mg PO DAILY@0700 Polyethylene Glycol 3350 [MiraLAX] Med 01/14/19 16:58 Active 17 gm PO DAILY PRN Simvastatin [Zocor] Med 01/15/19 20:00 Active 5 mg PO MOWEFR@2000 carBAMazepine [Equetro] Med 01/14/19 21:00 Active 300 mg PO 09, glipiZIDE [Glucotrol XL] Med 01/15/19 08:00 Active 10 mg PO DAILY hydroCHLOROthiazide Med 01/15/19 08:00 Active 12.5 mg PO DAILY metFORMIN [Glucophage] Med 01/15/19 08:00 Active 500 mg PO BIDMEALS Code Status [Resuscitation Status] Routine Resus Stat 01/14/19 15:52 Ordered Medication Orders Acetaminophen (Tylenol) 650 mg PO Q4H PRN PRN Reason: Pain Last Admin: 01/15/19 05:57 Dose: 650 mg Admin: 01/15/19 02:00 Dose: 650 mg Admin: 01/14/19 21:08 Dose: 650 mg Amoxicillin/Clavulanate Potassium (Augmentin 500 Mg\125 Mg) 1 tab PO Q12HR [facility] Stop: 01/18/19 08:30 Last Admin: 01/15/19 08:06 Dose: 1 tab Admin: 01/14/19 19:22 Dose: 1 tab Aspirin (Aspirin) 81 mg PO BEDTIME [facility] Gabapentin (Neurontin) 400 mg PO BID [facility] Last Admin: 01/15/19 08:05 Dose: 400 mg Admin: 01/14/19 19:22 Dose: 400 mg Gemfibrozil (Lopid) 600 mg PO BIDAC [facility] Last Admin: 01/15/19 06:00 Dose: Not Given Admin: 01/15/19 05:57 Dose: 600 mg Admin: 01/14/19 19:22 Dose: 600 mg Glipizide (Glucotrol Xl) 10 mg PO DAILY [facility] Last Admin: 01/15/19 08:06 Dose: 10 mg Hydrochlorothiazide (Hydrochlorothiazide) 12.5 mg PO DAILY [facility] Last Admin: 01/15/19 08:06 Dose: 12.5 mg Lisinopril (Prinivil) 40 mg PO 1200 [facility] Loratadine (Claritin) 10 mg PO DAILY PRN PRN Reason: Allergies Meclizine HCl (Antivert) 25 mg PO BID PRN PRN Reason: Dizziness Metformin HCl (Glucophage) 500 mg PO BIDMEALS [facility] Last Admin: 01/15/19 08:06 Dose: 500 mg Metoprolol Succinate (Toprol Xl) 12.5 mg PO DAILY [facility] Last Admin: 01/15/19 08:05 Dose: 12.5 mg Carbamazepine [ Equetro] 300 Mg # Ptom# 300 mg PO [facility] Last Admin: 01/15/19 08:05 Dose: 300 mg Admin: 01/14/19 21:10 Dose: 300 mg Pantoprazole Sodium (Protonix) 40 mg PO DAILY@0700 [facility] Last Admin: 01/15/19 06:00 Dose: Not Given Admin: 01/15/19 05:57 Dose: 40 mg Polyethylene Glycol (Miralax) 17 gm PO DAILY PRN PRN Reason: Constipation Simvastatin (Zocor) 5 mg PO MOWEFR@1999 [facility] Assessment/Plan Comment:: #1 Generalized Weakness #2 Falls #3 Chest Wall Contusion - Patient to transition to [facility], which is certainly appropriate given her current health status. - She will remain on swing bed until a bed is available, which will hopefully be in the next couple of days. - No internal injuries noted on imaging and no pain despite her large chest wall contusion. Will monitor. #4 Pacemaker #5 Atrial Fibrillation s/p ablation - Continue metoprolol. - Warfarin also to be continued per anticoagulation clinic dosing. INR is subtherapeutic today but will allow this to gradually shift up given large contusion on her chest wall. She does not require bridging with lovenox. #6 Trigeminal Neuralgia #7 Peripheral Neuropathy - Continue gabapentin and carbamazepine. #8 Iron deficiency anemia #9 B12 deficiency - Hgb actually normal with this hospitalization. - B12 will not be due while she is here. #10 CAD #11 Hyperlipidemia #12 Hypertension - Continue home medications. #13 DM 2 - Continue home medications. - She does not need accuchecks while admitted. #14 OA #15 Osteoporosis - Continue home medications. #16 Acute sinusitis - Seen on CT, although it does not sound like the patient had much for symptoms. - Complete the course of augmentin. Patient is admitted to swing bed until a bed is available at the care center. Her home medications (apart from MVT, vitamin D, other non-essentials) will be continued. No indication for VTE prophylaxis as it is anticipated her hospitalization will be short. Code status is full - discussed with patient on status change from obs to swing.
[2019-01-15] MEDS ORDERED: Lisinopril 20 MG Tab PO SCH (12:00)
[2019-01-15] MEDS: CARBAMAZEPINE 400 MG PO PRN ×2 (12:29→21:28)
[2019-01-15] MEDS: LISINOPRIL 40 MG PO SCH (16:06)
[2019-01-15] MEDS: GEMFIBROZIL PO SCH (17:43)
[2019-01-15] MEDS: AMOXICILLIN PO SCH (17:43)
[2019-01-15] MEDS: CLAVULANATE PO SCH (17:43)
[2019-01-15] MEDS ORDERED: METFORMIN 500 MG PO SCH (18:00)
[2019-01-15] MEDS: GABAPENTIN PO SCH (19:27)
[2019-01-15] MEDS ORDERED: Warfarin 5 MG Tab PO SCH (20:00)
[2019-01-15] MEDS ORDERED: Simvastatin 10 MG Tab PO SCH (20:00)
[2019-01-15] MEDS ORDERED: Aspirin 81 MG Tab.Chew PO SCH (20:00)
[2019-01-15] MEDS ORDERED: SIMVASTATIN 10 MG PO SCH (20:00)
[2019-01-15] MEDS ORDERED: WARFARIN 10 MG PO SCH (20:00)
[2019-01-16] MEDS: Pantoprazole 40 MG Tab.CR PO SCH (06:21)
[2019-01-16] MEDS: GEMFIBROZIL PO SCH ×2 (06:21→17:43)
[2019-01-16] MEDS: Acetaminophen 325 MG Tab PO PRN (06:21)
[2019-01-16] MEDS: CARBAMAZEPINE 400 MG PO PRN ×2 (09:40→19:54)
[2019-01-16] MEDS: GABAPENTIN PO SCH ×2 (09:40→19:52)
[2019-01-16] MEDS: METOPROLOL 25 MG PO SCH (09:40)
[2019-01-16] MEDS: AMOXICILLIN PO SCH ×2 (09:40→17:43)
[2019-01-16] MEDS: GLIPIZIDE PO SCH (09:40)
[2019-01-16] MEDS: CLAVULANATE PO SCH ×2 (09:40→17:43)
[2019-01-16] MEDS: HYDROCHLOROTHIAZIDE 12.5 MG PO SCH (09:41)
[2019-01-16] MEDS: CARBAMAZEPINE 300 MG PO SCH ×2 (09:41→22:22)
--- NOTE | 2019-01-16 10:39 | PCM.DCSUM1 ---
Discharge Summary - Hospital Course HPI Initial Comments: Patient presented to the [facility] ED Sunday01/12/19 with complaints of a fall and increased general weakness. Was discharged from observation to swing bed until able to go to the area long term/care center. Diagnosis: Stroke: No Modified Nusrat Scale: No Symptoms at All Modified Wake Scale Score: 0 - Discharge Data Discharge Date: 01/14/19 Discharge Disposition: DC/Tfer W/I Hosp To Swing 61 Condition: Good - Discharge Diagnosis/Problem(s) (1) Weakness SNOMED Code(s): 21289508 ICD Code: R53.1 - WEAKNESS Status: Chronic Priority: Medium Current Visit: No - Patient Summary/Data Consults: Consultations 01/15/19 09:57 OT Evaluation and Treatment [CONS] Routine PT Evaluation and Treatment [CONS] Routine - Discharge Plan Home Medications: Home Meds glipiZIDE [Glipizide ER] 10 mg PO DAILY 08/25/15 [History] metFORMIN HCl [Metformin HCl] 500 mg PO BID 08/25/15 [History] Acetaminophen 650 mg PO Q4H PRN 05/14/18 [History] Aspirin 81 mg PO BEDTIME 05/14/18 [History] Cholecalciferol (Vitamin D3) [D3 Dots] 50 mcg PO DAILY 05/14/18 [History] Cyanocobalamin (Vitamin B-12) [B-12 Compliance] 1,500 mcg IJ Q30D 05/14/18 [ History] Gabapentin [Neurontin] 400 mg PO BID 05/14/18 [History] Gemfibrozil [Lopid] 600 mg PO BID 05/14/18 [History] Hydrochlorothiazide [Microzide] 12.5 mg PO DAILY 05/14/18 [History] Lisinopril 40 mg PO 1200 05/14/18 [History] Loratadine [Claritin] 10 mg PO DAILY PRN 05/14/18 [History] Magnesium Oxide 400 mg PO DAILY 05/14/18 [History] Meclizine [Antivert] 25 mg PO BID PRN 05/14/18 [History] Metoprolol Succinate [Toprol XL] 12.5 mg PO DAILY 05/14/18 [History] Pantoprazole Sodium [Protonix] 40 mg PO DAILY 05/14/18 [History] Polyethylene Glycol 3350 [MiraLAX] 17 gm PO DAILY PRN 05/14/18 [History] Simethicone 125 mg PO Q6H PRN 05/14/18 [History] Simvastatin [Zocor] 5 mg PO MOWEFR@199905/14/18 [History] Warfarin [Coumadin] 2.5 mg PO ASDIRECTED 05/14/18 [History] carBAMazepine [Carbamazepine ER] 400 mg PO BID PRN 05/14/18 [History] carBAMazepine [Equetro] 300 mg PO 05/14/18 [History] - Discharge Summary/Plan Comment DC Time >30 min.: No - General Info Date of Service: 01/14/19 Admission Dx/Problem (Free Text: weakness, falls Subjective Update: Still feeling weak. Says it has improved and is working with therapy. Ambulating with therapy. - Review of Systems General: Reports: Weakness HEENT: Reports: No Symptoms Pulmonary: Reports: Shortness of Breath (chronic) Cardiovascular: Reports: No Symptoms Gastrointestinal: Reports: No Symptoms Genitourinary: Reports: No Symptoms Musculoskeletal: Reports: No Symptoms Skin: Reports: No Symptoms Neurological: Reports: Difficulty Walking Psychiatric: Reports: No Symptoms - Patient Data Vitals - Most Recent: Last Vital Signs Temp 36.4 C 01/16/19 05:25 Pulse 57 L 01/16/19 05:25 Resp 18 01/16/19 05:25 BP 159/64 H 01/16/19 05:25 Pulse Ox 99 01/16/19 05:25 Weight - Most Recent: 70.789 kg I&O - Last 24 hours: Intake & Output 01/15/19 01/16/19 01/16/19 22:59 06:59 14:59 Intake Total 120 300 Output Total 600 Balance 120 -300 Med Orders - Current: Current Medications Acetaminophen (Tylenol) 650 mg PO Q4H PRN PRN Reason: Pain Last Admin: 01/16/19 06:21 Dose: 650 mg Aspirin (Halfprin) 81 mg PO BEDTIME [facility] Loratadine (Claritin) 10 mg PO DAILY PRN PRN Reason: Allergies Meclizine HCl (Antivert) 25 mg PO BID PRN PRN Reason: Dizziness Carbamazepine Er (400mg (Own Supply)) 0 mg PO BID PRN PRN Reason: severe pain Last Admin: 01/16/19 09:40 Dose: 400 mg Gabapentin.400mg ( (Own Supply)) 1 each PO BID [facility] Last Admin: 01/16/19 09:40 Dose: 1 each Gemfibrozil.600mg ( (Own Supply)) 1 each PO BIDAC [facility] Last Admin: 01/16/19 06:21 Dose: 1 each Glipizide.10mg Er ( (Own Supply)) 1 each PO DAILY [facility] Last Admin: 01/16/19 09:40 Dose: 1 each Hydrochlorothiazide. (12.5mg (Own Supply)) 1 each PO DAILY [facility] Last Admin: 01/16/19 09:41 Dose: 1 each Lisinopril. 40mg ( (Own Supply)) 1 each PO DAILY@1200 [facility] Last Admin: 01/15/19 16:06 Dose: Not Given Metoprolol.Er 25mg ( (Own Supply)) 0.5 tab PO DAILY [facility] Last Admin: 01/16/19 09:40 Dose: 0.5 tab Amoxicillin/Clavulanate 500/125mg 1 Each) 1 each PO BIDMEALS [facility] Stop: 01/18/19 08:00 Last Admin: 01/16/19 09:40 Dose: 1 each Metformin. 1,000mg ( (Own Supply)) 0.5 each PO BIDMEALS [facility] Simvastatin. 5mg ( (Own Supply)) 1 each PO MOWEFR@2000 [facility] Warfarin 5mg (Own (Supply)) 2 each PO BEDTIME [facility] Carbamazepine [ Equetro] 300 Mg (Own Supply) 300 mg PO BID@0900,2100 [facility] Pantoprazole Sodium (Protonix) 40 mg PO DAILY@0700 [facility] Last Admin: 01/16/19 06:21 Dose: 40 mg Polyethylene Glycol (Miralax) 17 gm PO DAILY PRN PRN Reason: Constipation Discontinued Medications Amoxicillin/Clavulanate Potassium (Augmentin 500 Mg\125 Mg) 1 tab PO Q12HR [facility] Stop: 01/18/19 08:30 Last Admin: 01/15/19 08:06 Dose: 1 tab Aspirin (Aspirin) 81 mg PO BEDTIME [facility] Last Admin: 01/15/19 19:27 Dose: 81 mg Gabapentin (Neurontin) 400 mg PO BID [facility] Last Admin: 01/15/19 08:05 Dose: 400 mg Gemfibrozil (Lopid) 600 mg PO BIDAC [facility] Last Admin: 01/15/19 06:00 Dose: Not Given Glipizide (Glucotrol Xl) 10 mg PO DAILY [facility] Last Admin: 01/15/19 08:06 Dose: 10 mg Hydrochlorothiazide (Hydrochlorothiazide) 12.5 mg PO DAILY [facility] Last Admin: 01/15/19 08:06 Dose: 12.5 mg Metformin HCl (Glucophage) 500 mg PO BID [facility] Last Admin: 01/14/19 19:22 Dose: 500 mg Metformin HCl (Glucophage) 500 mg PO BIDMEALS [facility] Last Admin: 01/15/19 08:06 Dose: 500 mg Metformin HCl (Glucophage) 500 mg PO ONETIME ONE Stop: 01/14/19 20:01 Last Admin: 01/14/19 21:09 Dose: Not Given Metoprolol Succinate (Toprol Xl) 12.5 mg PO DAILY [facility] Last Admin: 01/15/19 08:05 Dose: 12.5 mg Carbamazepine [ Equetro] 300 Mg # Ptom# 300 mg PO 09,21 [facility] Last Admin: 01/16/19 09:41 Dose: 300 mg Metformin. 500mg ( (Own Supply)) 1 each PO BIDMEALS [facility] Last Admin: 01/16/19 09:41 Dose: 1 each Simvastatin. 10mg ( (Own Supply)) 0.5 each PO MOWEFR@2000 [facility] Last Admin: 01/15/19 19:27 Dose: 0.5 each Metformin 500mg (Own (Supply)) 1 each PO BIDMEALS [facility] Last Admin: 01/15/19 17:43 Dose: 1 each Warfarin 10mg (Own (Supply)) 1 each PO BEDTIME [facility] Last Admin: 01/15/19 19:28 Dose: 1 each Warfarin Sodium (Coumadin) 2.5 mg PO ASDIRECTED ONE Stop: 01/14/19 17:01 Last Admin: 01/15/19 07:43 Dose: Not Given - Exam General: Reports: Alert, Oriented, Cooperative, No Acute Distress HEENT: Reports: Pupils Equal, Pupils Reactive, EOMI, Mucous Membr. Moist/[place] Neck: Reports: Supple Lungs: Reports: Clear to Auscultation, Normal Respiratory Effort Cardiovascular: Reports: Regular Rate, Regular Rhythm GI/Abdominal Exam: Normal Bowel Sounds, Soft, Non-Tender, No Organomegaly, No Distention, No Abnormal Bruit, No Mass, Pelvis Stable (Female) Exam: Deferred Rectal (Female) Exam: Deferred Back Exam: Reports: Normal Inspection, Full Range of Motion Extremities: Normal Inspection, Normal Range of Motion, Non-Tender, No Pedal Edema, Normal Capillary Refill Skin: Reports: Warm, Dry, Intact Neurological: Reports: No New Focal Deficit Psy/Mental Status: Reports: Alert, Normal Affect, Normal Mood
[2019-01-16] MEDS: LISINOPRIL 40 MG PO SCH (12:52)
--- NOTE | 2019-01-16 17:13 | PCM.DCSUM1 ---
Discharge Summary - Hospital Course Brief History: Ms. Gamino is an 83 yo female admitted to swing bed while awaiting a bed at [facility]. She was initially admitted to observation for generalized weakness and recurrent falls. Her work-up was unremarkable and she was admitted to observation due to concerns about her ability to remain home independently. She did not improve with time and it was felt she needed to transition from independent living to living at the care center. Therefore, while awaiting bed availability, she was transitioned to swing bed cares. - Discharge Data Discharge Date: 01/17/19 Discharge Disposition: DC/Tfer to SNF 03 Condition: Good - Discharge Diagnosis/Problem(s) (1) Weakness SNOMED Code(s): 69893611 ICD Code: R53.1 - WEAKNESS Status: Chronic Priority: Medium Current Visit: No (2) Fall SNOMED Code(s): 7626859, 504368014 ICD Code: W19.XXXA - UNSPECIFIED FALL, INITIAL ENCOUNTER Status: Acute Current Visit: No Qualifiers: Encounter type: initial encounter Qualified Code(s): W19.XXXA - Unspecified fall, initial encounter (3) Chest wall contusion SNOMED Code(s): 44612521 ICD Code: S20.219A - CONTUSION OF UNSPECIFIED FRONT WALL OF THORAX, INIT ENCNTR Status: Acute Current Visit: No Qualifiers: Encounter type: initial encounter Laterality: right Qualified Code(s): S20.211A - Contusion of right front wall of thorax, initial encounter (4) Pacemaker SNOMED Code(s): 607153770 ICD Code: Z95.0 - PRESENCE OF CARDIAC PACEMAKER Status: Chronic Current Visit: Yes (5) Atrial fibrillation SNOMED Code(s): 19087564 ICD Code: I48.91 - UNSPECIFIED ATRIAL FIBRILLATION Status: Chronic Current Visit: Yes Qualifiers: Atrial fibrillation type: persistent Qualified Code(s): I48.1 - Persistent atrial fibrillation (6) Trigeminal neuralgia SNOMED Code(s): 15276211 ICD Code: G50.0 - TRIGEMINAL NEURALGIA Status: Chronic Current Visit: Yes (7) Neuropathy SNOMED Code(s): 884408737 ICD Code: G62.9 - POLYNEUROPATHY, UNSPECIFIED Status: Chronic Current Visit: No (8) Anemia SNOMED Code(s): 975880512 ICD Code: D64.9 - ANEMIA, UNSPECIFIED Status: Chronic Current Visit: No Qualifiers: Anemia type: iron deficiency Iron deficiency anemia type: unspecified iron deficiency Qualified Code(s): D50.9 - Iron deficiency anemia, unspecified (9) B12 deficiency SNOMED Code(s): 992322405 ICD Code: E53.8 - DEFICIENCY OF OTHER SPECIFIED B GROUP VITAMINS Status: Chronic Current Visit: No (10) CAD (coronary artery disease) SNOMED Code(s): 05162196 ICD Code: I25.10 - ATHSCL HEART DISEASE OF [place] CORONARY ARTERY W/O ANG PCTRS Status: Chronic Current Visit: No (11) Hypercholesteremia SNOMED Code(s): 07618205 ICD Code: E78.00 - PURE HYPERCHOLESTEROLEMIA, UNSPECIFIED Status: Chronic Current Visit: No (12) Hypertension SNOMED Code(s): 65504927 ICD Code: I10 - ESSENTIAL (PRIMARY) HYPERTENSION Status: Chronic Current Visit: No Qualifiers: Hypertension type: essential hypertension Qualified Code(s): I10 - Essential (primary) hypertension (13) DM2 (diabetes mellitus, type 2) SNOMED Code(s): 22878904 ICD Code: E11.9 - TYPE 2 DIABETES MELLITUS WITHOUT COMPLICATIONS Status: Chronic Current Visit: No Qualifiers: Diabetes mellitus almond huller insulin use: without almond huller use Diabetes mellitus complication status: without complication Qualified Code(s): E11.9 - Type 2 diabetes mellitus without complications (14) Osteoarthritis SNOMED Code(s): 977910182 ICD Code: M19.90 - UNSPECIFIED OSTEOARTHRITIS, UNSPECIFIED SITE Status: Chronic Current Visit: No Qualifiers: Osteoarthritis location: multiple joints Osteoarthritis type: primary Qualified Code(s): M15.0 - Primary generalized (osteo)arthritis (15) Osteoporosis SNOMED Code(s): 16812342 ICD Code: M81.0 - AGE-RELATED OSTEOPOROSIS W/O CURRENT PATHOLOGICAL FRACTURE Status: Chronic Current Visit: No Qualifiers: Osteoporosis type: age-related Presence of current pathological fracture: without current pathological fracture Qualified Code(s): M81.0 - Age-related osteoporosis without current pathological fracture (16) Sinusitis SNOMED Code(s): 84572076 ICD Code: J32.9 - CHRONIC SINUSITIS, UNSPECIFIED Status: Acute Current Visit: Yes Qualifiers: Sinusitis location: pansinusitis Chronicity: acute Recurrence: non- recurrent Qualified Code(s): J01.40 - Acute pansinusitis, unspecified - Patient Summary/Data Operative Procedure(s) Performed: none Complications: none Consults: Consultations 01/15/19 09:57 OT Evaluation and Treatment [CONS] Routine PT Evaluation and Treatment [CONS] Routine Labs Pending at D/C: none Recommended Follow-up Testing/Procedures: none Planned Operative Procedure(s) after DC: none Hospital Course: [facility] and her hospitalization was uncomplicated. Augmentin was continued for sinusitis. Her home medications were continued. She has been accepted for transfer to [facility] tomorrow and will be discharged in the am. - Patient Instructions Diet: Regular Diet as Tolerated Activity: As Tolerated Showering/Bathing: May Shower Notify Provider of: Fever, Increased Pain, Swelling and Redness, Drainage, Nausea and/or Vomiting - Discharge Plan *PRESCRIPTION DRUG MONITORING PROGRAM REVIEWED*: No *COPY OF PRESCRIPTION DRUG MONITORING REPORT IN PATIENT LUPILLO: No Prescriptions/Med Rec: Amoxicillin/Clavulanate 500mg 1 each PO BIDMEALS #8 Home Medications: Home Meds glipiZIDE [Glipizide ER] 10 mg PO DAILY 08/25/15 [History] metFORMIN HCl [Metformin HCl] 500 mg PO BID 08/25/15 [History] Acetaminophen 650 mg PO Q4H PRN 05/14/18 [History] Aspirin 81 mg PO BEDTIME 05/14/18 [History] Cholecalciferol (Vitamin D3) [D3 Dots] 50 mcg PO DAILY 05/14/18 [History] Cyanocobalamin (Vitamin B-12) [B-12 Compliance] 1,500 mcg IJ Q30D 05/14/18 [ History] Gabapentin [Neurontin] 400 mg PO BID 05/14/18 [History] Gemfibrozil [Lopid] 600 mg PO BID 05/14/18 [History] Hydrochlorothiazide [Microzide] 12.5 mg PO DAILY 05/14/18 [History] Lisinopril 40 mg PO 1200 05/14/18 [History] Loratadine [Claritin] 10 mg PO DAILY PRN 05/14/18 [History] Magnesium Oxide 400 mg PO DAILY 05/14/18 [History] Meclizine [Antivert] 25 mg PO BID PRN 05/14/18 [History] Metoprolol Succinate [Toprol XL] 12.5 mg PO DAILY 05/14/18 [History] Pantoprazole Sodium [Protonix] 40 mg PO DAILY 05/14/18 [History] Polyethylene Glycol 3350 [MiraLAX] 17 gm PO DAILY PRN 05/14/18 [History] Simethicone 125 mg PO Q6H PRN 05/14/18 [History] Simvastatin [Zocor] 5 mg PO MOWEFR@199905/14/18 [History] carBAMazepine [Carbamazepine ER] 400 mg PO BID PRN 05/14/18 [History] carBAMazepine [Equetro] 300 mg PO ,05/14/18 [History] Amoxicillin/Clavulanate 500mg 1 each PO BIDMEALS #8 01/16/19 [Rx] Warfarin [Coumadin] 10 mg PO DAILY #0 01/16/19 [Rx] - Discharge Summary/Plan Comment DC Time >30 min.: No - General Info Date of Service: 01/16/19 Subjective Update: Patient states she is feeling much better today. Her facial pain is significantly improved. She is accepting of transfer to the care center tomorrow. She denies any other questions or concerns today. She does note improvement in cough and sinus congestion with the augmentin and notes that she did not realize how sick she was. - Review of Systems General: Reports: No Symptoms HEENT: Reports: Post Nasal Drip, Sinus Congestion Pulmonary: Reports: Cough. Denies: Shortness of Breath Cardiovascular: Reports: No Symptoms Gastrointestinal: Reports: No Symptoms Genitourinary: Reports: No Symptoms Musculoskeletal: Reports: No Symptoms Skin: Reports: No Symptoms Neurological: Reports: No Symptoms Psychiatric: Reports: No Symptoms - Patient Data Vitals - Most Recent: Last Vital Signs Temp 36.4 C 01/16/19 05:25 Pulse 57 L 01/16/19 05:25 Resp 18 01/16/19 05:25 BP 159/64 H 01/16/19 05:25 Pulse Ox 99 01/16/19 05:25 Weight - Most Recent: 70.789 kg I&O - Last 24 hours: Intake & Output 01/16/19 01/16/19 01/16/19 06:59 14:59 22:59 Intake Total 300 360 Output Total 600 Balance -300 360 Med Orders - Current: Current Medications Acetaminophen (Tylenol) 650 mg PO Q4H PRN PRN Reason: Pain Last Admin: 01/16/19 06:21 Dose: 650 mg Aspirin (Halfprin) 81 mg PO BEDTIME АНДРЕЙ Loratadine (Claritin) 10 mg PO DAILY PRN PRN Reason: Allergies Meclizine HCl (Antivert) 25 mg PO BID PRN PRN Reason: Dizziness Carbamazepine Er (400mg (Own Supply)) 0 mg PO BID PRN PRN Reason: severe pain Last Admin: 01/16/19 09:40 Dose: 400 mg Gabapentin.400mg ( (Own Supply)) 1 each PO BID [facility] Last Admin: 01/16/19 09:40 Dose: 1 each Gemfibrozil.600mg ( (Own Supply)) 1 each PO BIDAC [facility] Last Admin: 01/16/19 06:21 Dose: 1 each Glipizide.10mg Er ( (Own Supply)) 1 each PO DAILY [facility] Last Admin: 01/16/19 09:40 Dose: 1 each Hydrochlorothiazide. (12.5mg (Own Supply)) 1 each PO DAILY [facility] Last Admin: 01/16/19 09:41 Dose: 1 each Lisinopril. 40mg ( (Own Supply)) 1 each PO DAILY@1200 [facility] Last Admin: 01/16/19 12:52 Dose: 1 each Metoprolol.Er 25mg ( (Own Supply)) 0.5 tab PO DAILY [facility] Last Admin: 01/16/19 09:40 Dose: 0.5 tab Amoxicillin/Clavulanate 500/125mg 1 Each) 1 each PO BIDMEALS [facility] Stop: 01/18/19 08:00 Last Admin: 01/16/19 09:40 Dose: 1 each Metformin. 1,000mg ( (Own Supply)) 0.5 each PO BIDMEALS [facility] Simvastatin. 5mg ( (Own Supply)) 1 each PO MOWEFR@2000 [facility] Warfarin 5mg (Own (Supply)) 2 each PO BEDTIME [facility] Carbamazepine [ Equetro] 300 Mg (Own Supply) 300 mg PO BID@0900,2100 [facility] Pantoprazole Sodium (Protonix) 40 mg PO DAILY@0700 [facility] Last Admin: 01/16/19 06:21 Dose: 40 mg Polyethylene Glycol (Miralax) 17 gm PO DAILY PRN PRN Reason: Constipation Discontinued Medications Amoxicillin/Clavulanate Potassium (Augmentin 500 Mg\125 Mg) 1 tab PO Q12HR [facility] Stop: 01/18/19 08:30 Last Admin: 01/15/19 08:06 Dose: 1 tab Aspirin (Aspirin) 81 mg PO BEDTIME [facility] Last Admin: 01/15/19 19:27 Dose: 81 mg Gabapentin (Neurontin) 400 mg PO BID [facility] Last Admin: 01/15/19 08:05 Dose: 400 mg Gemfibrozil (Lopid) 600 mg PO BIDAC [facility] Last Admin: 01/15/19 06:00 Dose: Not Given Glipizide (Glucotrol Xl) 10 mg PO DAILY [facility] Last Admin: 01/15/19 08:06 Dose: 10 mg Hydrochlorothiazide (Hydrochlorothiazide) 12.5 mg PO DAILY [facility] Last Admin: 01/15/19 08:06 Dose: 12.5 mg Metformin HCl (Glucophage) 500 mg PO BID [facility] Last Admin: 01/14/19 19:22 Dose: 500 mg Metformin HCl (Glucophage) 500 mg PO BIDMEALS [facility] Last Admin: 01/15/19 08:06 Dose: 500 mg Metformin HCl (Glucophage) 500 mg PO ONETIME ONE Stop: 01/14/19 20:01 Last Admin: 01/14/19 21:09 Dose: Not Given Metoprolol Succinate (Toprol Xl) 12.5 mg PO DAILY [facility] Last Admin: 01/15/19 08:05 Dose: 12.5 mg Carbamazepine [ Equetro] 300 Mg # Ptom# 300 mg PO 09,21 [facility] Last Admin: 01/16/19 09:41 Dose: 300 mg Metformin. 500mg ( (Own Supply)) 1 each PO BIDMEALS [facility] Last Admin: 01/16/19 09:41 Dose: 1 each Simvastatin. 10mg ( (Own Supply)) 0.5 each PO MOWEFR@2000 [facility] Last Admin: 01/15/19 19:27 Dose: 0.5 each Metformin 500mg (Own (Supply)) 1 each PO BIDMEALS [facility] Last Admin: 01/15/19 17:43 Dose: 1 each Warfarin 10mg (Own (Supply)) 1 each PO BEDTIME [facility] Last Admin: 01/15/19 19:28 Dose: 1 each Warfarin Sodium (Coumadin) 2.5 mg PO ASDIRECTED ONE Stop: 01/14/19 17:01 Last Admin: 01/15/19 07:43 Dose: Not Given - Exam General: Reports: Alert, Oriented, Cooperative, No Acute Distress HEENT: Reports: Mucous Membr. Moist/[place] Neck: Reports: Supple, Trachea Midline, No Thyromegaly. Denies: Lymphadenopathy Lungs: Reports: Clear to Auscultation, Normal Respiratory Effort Cardiovascular: Reports: Regular Rate, Regular Rhythm GI/Abdominal Exam: Normal Bowel Sounds, Soft, Non-Tender, No Organomegaly, No Distention, No Mass Extremities: Non-Tender, No Pedal Edema, Normal Capillary Refill Skin: Reports: Warm, Dry, Intact
[2019-01-16] MEDS: METFORMIN 1000 MG PO SCH (17:43)
[2019-01-16] MEDS ORDERED: Aspirin 81 MG Tab.EC PO SCH (20:00)
[2019-01-17] MEDS: Pantoprazole 40 MG Tab.CR PO SCH (06:08)
[2019-01-17] MEDS: GEMFIBROZIL PO SCH (06:08)
[2019-01-17 06:12] VITALS: BP 106/52; PULSE 102
[2019-01-17] MEDS: METFORMIN 1000 MG PO SCH (07:31)
[2019-01-17] MEDS: METOPROLOL 25 MG PO SCH (07:31)
[2019-01-17] MEDS: HYDROCHLOROTHIAZIDE 12.5 MG PO SCH (07:32)
[2019-01-17] MEDS: GLIPIZIDE PO SCH (07:32)
[2019-01-17] MEDS: GABAPENTIN PO SCH (07:33)
[2019-01-17] MEDS: CLAVULANATE PO SCH (07:33)
[2019-01-17] MEDS: AMOXICILLIN PO SCH (07:33)
[2019-01-17] MEDS: CARBAMAZEPINE 300 MG PO SCH (09:33)
[2019-01-17] MEDS ORDERED: SIMVASTATIN 5 MG PO SCH (20:00)
== END 2019-01-17 10:15 | DRG 948 ==
LOC: VM.MS 15:40
PROVIDERS: ADMIT Family Medicine; ATTEND Family Medicine
DX: R53.1 Weakness (principal); I48.1 Persistent atrial fibrillation; S20.211A Contusion of right front wall of thorax, initial encounter; G50.0 Trigeminal neuralgia; E53.8 Deficiency of other specified B group vitamins; I25.10 Atherosclerotic heart disease of native coronary artery without angina pectoris; E78.00 Pure hypercholesterolemia, unspecified; I10 Essential (primary) hypertension; M15.0 Primary generalized (osteo)arthritis; M81.0 Age-related osteoporosis without current pathological fracture; J01.40 Acute pansinusitis, unspecified; W19.XXXA Unspecified fall, initial encounter; K21.9 Gastro-esophageal reflux disease without esophagitis; D50.9 Iron deficiency anemia, unspecified; K59.09 Other constipation; E11.40 Type 2 diabetes mellitus with diabetic neuropathy, unspecified; E55.9 Vitamin D deficiency, unspecified; Z96.659 Presence of unspecified artificial knee joint; Z90.49 Acquired absence of other specified parts of digestive tract; Z90.710 Acquired absence of both cervix and uterus; Z95.0 Presence of cardiac pacemaker; Z79.82 Long term (current) use of aspirin; Z79.899 Other long term (current) drug therapy; Z86.73 Personal history of transient ischemic attack (TIA), and cerebral infarction without residual deficits
CPT/HCPCS: 36415; 82962; 85610; 97110-GO; 97110-GP; 97116-GP; 97530-GP; 97535-GO; A9270-GY

== ENCOUNTER 2020-07-14 14:12 | Inpatient (IN) | payer MEDICARE, MEDICAID ==
--- NOTE | 2020-07-14 15:52 | CT ---
[id number] CT/CT Head WO IV EXAM: CT Head WO IV CLINICAL DATA: TRAUMA COMPARISON: CORRELATION IS MADE WITH JANUARY 13, 2019 FINDINGS: There is no mass or mass effect. There is no hemorrhage or hydrocephalus. There are no extra-axial fluid collections. There are no sites of abnormal attenuation. IMPRESSION: NO PLAIN CT EVIDENCE OF ACUTE INTRACRANIAL PROCESS. Kyle Segura MD 07/14/20 3325 Thank you for allowing us to participate in the care of your patient.
[2020-07-14] MEDS ORDERED: Acetaminophen 325 MG Tab PO PRN (16:12)
--- NOTE | 2020-07-14 16:29 | PCM.HP.2 ---
H&P History of Present Illness - General Date of Service: 07/14/20 Admit Problem/Dx: Admission Diagnosis/Problem Admission Diagnosis/Problem Hyponatremia Source of Information: Patient, Family History Limitations: Reports: Altered Mental Status - History of Present Illness Initial Comments - Free Text/Narative: Mrs. Gamino is an 85 yo female with PMH of chronic hyponatremia, HTN, CAD, complete heart block s/p pacemaker, CVA, valvular heart disease, a-fib, chronic allergic rhinitis, pure hyperlipidemia, type 2 DM, vitamin B and D deficiencies, anemia, trigeminal neuralgia, constipation, GERD, osteoporosis, and OA who was directly admitted for hyponatremia found on routine labs today. She has been feeling unwell x 2 days. She was feeling completely fine up until she got her 2nd dose of the COVID vaccine yesterday. Since then, she has been feeling more generally weak with a decrease in appetite. She ate very little yesterday or today. She has not been drinking as well as usual either. She has had some nausea but no vomiting. No diarrhea. She had COVID back in April and recovered from that without any issues. She has had an increase in her pain from trigeminal neuralgia recently and states she has been getting more of her PRN carbamazepine as well. Her daughter and halfway staff have noted that she has also been more confused and not quite acting like herself. She fell overnight but did not sustain any injuries. She does not recall hitting her head. - Related Data Allergies/Adverse Reactions: Allergies Allergy/AdvReac Type Severity Reaction Status Date / Time No Known Allergies Allergy Verified 07/14/20 14:49 Home Medications: Home Meds glipiZIDE [Glipizide ER] 20 mg PO DAILY 08/25/15 [History] metFORMIN HCl [Metformin HCl] 1,000 mg PO BID 08/25/15 [History] Aspirin 81 mg PO BEDTIME 05/14/18 [History] Cyanocobalamin (Vitamin B-12) [B-12 Compliance] 1,500 mcg IM Q30D 05/14/18 [History] Gabapentin [Neurontin] 400 mg PO BID 05/14/18 [History] Magnesium Oxide 400 mg PO DAILY 05/14/18 [History] Meclizine [Antivert] 25 mg PO BID PRN 05/14/18 [History] Metoprolol Succinate [Toprol XL] 12.5 mg PO DAILY 05/14/18 [History] Pantoprazole Sodium [Protonix] 40 mg PO DAILY 05/14/18 [History] carBAMazepine [Carbamazepine ER] 400 mg PO Q12H PRN 05/14/18 [History] carBAMazepine [Equetro] 300 mg PO BID 05/14/18 [History] gemfibroziL [Lopid] 600 mg PO BID 05/14/18 [History] polyethylene glycoL 3350 [MiraLAX] 17 gm PO DAILY 05/14/18 [History] Warfarin [Coumadin] 10 mg PO DAILY #0 01/16/19 [Rx] Acetaminophen [Pain Reliever] 650 mg PO Q4HR PRN 07/14/20 [History] Cholecalciferol (Vitamin D3) [Vitamin D3] 50 mcg PO DAILY 07/14/20 [History] Docusate Sodium [Colace] 100 mg PO DAILY 07/14/20 [History] Fexofenadine [Jenelle] 60 mg PO DAILY 07/14/20 [History] Fluticasone Propionate [Flonase] 1 spray NASBOTH BID 07/14/20 [History] Furosemide [Lasix] 10 mg PO DAILY 07/14/20 [History] Menthol [Biofreeze] 1 applic TOP BID 07/14/20 [History] Rosuvastatin [Crestor] 5 mg PO MOWEFR@08 07/14/20 [History] Sodium Chloride [Saline Nasal [place]] 1 spray NASBOTH Q4H 07/14/20 [History] amLODIPine [Norvasc] 10 mg PO DAILY 07/14/20 [History] guaiFENesin/Dextromethorphan [Guaifenesin Dm Syrup] 10 ml PO Q4H PRN 07/14/20 [History] Past Medical History HEENT History: Reports: Allergic Rhinitis, Other (See Below) Other HEENT History: parotid mass. pseudophakia. mypoia Cardiovascular History: Reports: Afib, Automatic Implantable Cardioverter Defibrillators, CAD, High Cholesterol, Hypertension, Pacemaker, Other (See Below) Other Cardiovascular History: complete heart block. valvular heart disease Respiratory History: Reports: None Gastrointestinal History: Reports: Chronic Constipation, Diverticulosis, GERD Genitourinary History: Reports: None Musculoskeletal History: Reports: Osteoarthritis, Osteoporosis Neurological History: Reports: CVA, Neuropathy, Peripheral, Vertigo, Other (See Below) Other Neuro History: neuralgia Psychiatric History: Reports: None Endocrine/Metabolic History: Reports: Diabetes, Type II, Hypomagnesemia, Vitamin D Deficiency Hematologic History: Reports: Anemia, B12 Deficiency, Other (See Below) Other Hematologic History: hypokalemia. hyponatremia Immunologic History: Reports: None Oncologic (Cancer) History: Reports: Cervix Dermatologic History: Reports: Other (See Below) Other Dermatologic History: alopecia - Infectious Disease History Infectious Disease History: Reports: Novel Coronavirus - Past Surgical History HEENT Surgical History: Reports: Cataract Surgery, Other (See Below) Other HEENT Surgeries/Procedures: parotidectomy with facial nerve monitorin Cardiovascular Surgical History: Reports: AICD, Pacer, Other (See Below) GI Surgical History: Reports: Appendectomy, Cholecystectomy, Colonoscopy Female Surgical History: Reports: Hysterectomy Musculoskeletal Surgical History: Reports: Knee Replacement - History Comment History Comment: Hypomagnesemia Social & Family History - Family History Cardiac: Reports: CAD Neurological: Reports: CVA, Dementia Oncologic: Reports: Lung, Pancreatic - Tobacco Use Tobacco Use Status *Q: Never Tobacco User Second Hand Smoke Exposure: No - Caffeine Use Caffeine Use: Reports: Coffee - Alcohol Use Alcohol Use History: No - Recreational Drug Use Recreational Drug Use: No - Living Situation & Occupation Living situation: Reports: , Extended Care Facility Occupation: Retired H&P Review of Systems - Review of Systems: Review Of Systems: See Below General: Reports: Malaise, Weakness. Denies: Fever, Chills HEENT: Reports: No Symptoms Pulmonary: Reports: No Symptoms Cardiovascular: Reports: No Symptoms Gastrointestinal: Reports: Anorexia, Decreased Appetite, Nausea. Denies: Constipation, Diarrhea, Vomiting Genitourinary: Reports: No Symptoms Musculoskeletal: Reports: No Symptoms Skin: Reports: No Symptoms Neurological: Reports: Confusion. Denies: Headache, Numbness Exam - Exam Exam: See Below - Vital Signs Vital Signs: Last Vital Signs Temp 37.3 C 07/14/20 15:16 Pulse 74 07/14/20 15:16 Resp BP 179/63 H 07/14/20 15:16 Pulse Ox 95 07/14/20 15:16 Weight: 77.973 kg - Exam General: Alert, Oriented, Cooperative HEENT: Conjunctiva Clear, Posterior Pharynx Clear, Pupils Equal, Pupils Reactive, Other (mucous membranes slightly dry) Neck: Supple, Trachea Midline Lungs: Clear to Auscultation, Normal Respiratory Effort Cardiovascular: Regular Rate, Normal S1, Normal S2, Irregular Rhythm GI/Abdominal Exam: Normal Bowel Sounds, Soft, Non-Tender, No Organomegaly, No Distention, No Mass Extremities: Normal Inspection, Non-Tender, No Pedal Edema, Normal Capillary Refill Peripheral Pulses: 2+: Radial (L), Radial (R) Skin: Warm, Dry, Intact Neurological: Strength Equal Bilateral, Sensation Intact Neuro Extensive - Mental Status: Alert, Oriented x3, Normal Mood/Affect Sepsis Event Note - Focused Exam Vital Signs: Vital Signs Temp Pulse BP Pulse Ox 07/14/20 15:16 37.3 C 74 179/63 H 95 *Q Meaningful Use (ADM) - VTE *Q VTE Anticoagulation Contraindications: Med/TX Not Indicated/Need - Problem List (1) Hyponatremia SNOMED Code(s): 25877632 ICD Code: E87.1 - HYPO-OSMOLALITY AND HYPONATREMIA Status: Acute Current Visit: Yes (2) Dehydration SNOMED Code(s): 21170655 ICD Code: E86.0 - DEHYDRATION Status: Acute Current Visit: Yes (3) Side effects of vaccination SNOMED Code(s): 843447821 ICD Code: T50.Z95A - ADVERSE EFFECT OF VACCINES AND BIOLOGICAL SUBSTANCES, INIT Status: Acute Current Visit: Yes Qualifiers: Encounter type: initial encounter Qualified Code(s): T50.Z95A - Adverse effect of other vaccines and biological substances, initial encounter (4) Delirium SNOMED Code(s): 5440972 ICD Code: R41.0 - DISORIENTATION, UNSPECIFIED Status: Acute Current Visit: Yes (5) Atrial fibrillation SNOMED Code(s): 78781340 ICD Code: I48.91 - UNSPECIFIED ATRIAL FIBRILLATION Status: Chronic Current Visit: No Qualifiers: Atrial fibrillation type: longstanding persistent Qualified Code(s): I48.11 - Longstanding persistent atrial fibrillation (6) CAD (coronary artery disease) SNOMED Code(s): 92575306 ICD Code: I25.10 - ATHSCL HEART DISEASE OF [place] CORONARY ARTERY W/O ANG PCTRS Status: Chronic Current Visit: No Qualifiers: Coronary Disease-Associated Artery/Lesion type: [place] artery [place] vs. transplanted heart: [place] heart Associated angina: without angina Qualified Code(s): I25.10 - Atherosclerotic heart disease of [place] coronary artery without angina pectoris (7) CVA (cerebral vascular accident) SNOMED Code(s): 032440953 ICD Code: I63.9 - CEREBRAL INFARCTION, UNSPECIFIED Status: Chronic Current Visit: No Qualifiers: CVA mechanism: unspecified Qualified Code(s): I63.9 - Cerebral infarction, unspecified (8) Heart failure SNOMED Code(s): 97594624 ICD Code: I50.9 - HEART FAILURE, UNSPECIFIED Status: Chronic Current Visit: No (9) Hypercholesteremia SNOMED Code(s): 04709810 ICD Code: E78.00 - PURE HYPERCHOLESTEROLEMIA, UNSPECIFIED Status: Chronic Current Visit: No (10) Hypertension SNOMED Code(s): 88770503 ICD Code: I10 - ESSENTIAL (PRIMARY) HYPERTENSION Status: Chronic Current Visit: No Qualifiers: Hypertension type: essential hypertension Qualified Code(s): I10 - Essential (primary) hypertension (11) DM2 (diabetes mellitus, type 2) SNOMED Code(s): 53134972 ICD Code: E11.9 - TYPE 2 DIABETES MELLITUS WITHOUT COMPLICATIONS Status: Chronic Current Visit: No Qualifiers: Diabetes mellitus batter mixer insulin use: without batter mixer use Diabetes mellitus complication status: without complication Qualified Code(s): E11.9 - Type 2 diabetes mellitus without complications (12) Osteoarthritis SNOMED Code(s): 619224277 ICD Code: M19.90 - UNSPECIFIED OSTEOARTHRITIS, UNSPECIFIED SITE Status: Chronic Current Visit: No Qualifiers: Osteoarthritis location: multiple joints Osteoarthritis type: primary (13) Trigeminal neuralgia SNOMED Code(s): 83102868 ICD Code: G50.0 - TRIGEMINAL NEURALGIA Status: Chronic Current Visit: No (14) B12 deficiency SNOMED Code(s): 503439898 ICD Code: E53.8 - DEFICIENCY OF OTHER SPECIFIED B GROUP VITAMINS Status: Chronic Current Visit: No (15) Constipation SNOMED Code(s): 11553798 ICD Code: K59.00 - CONSTIPATION, UNSPECIFIED Status: Chronic Current Visit: Yes Qualifiers: Constipation type: unspecified constipation type Qualified Code(s): K59.00 - Constipation, unspecified (16) Allergic rhinitis SNOMED Code(s): 35142064 ICD Code: J30.9 - ALLERGIC RHINITIS, UNSPECIFIED Status: Chronic Current Visit: Yes Qualifiers: Allergic rhinitis trigger: unspecified Allergic rhinitis seasonality: unspecified Qualified Code(s): J30.9 - Allergic rhinitis, unspecified (17) GERD (gastroesophageal reflux disease) SNOMED Code(s): 709387720 ICD Code: K21.9 - GASTRO-ESOPHAGEAL REFLUX DISEASE WITHOUT ESOPHAGITIS Status: Chronic Current Visit: Yes Problem List Initiated/Reviewed/Updated: Yes Orders Last 24hrs: Active Orders 24 hr Category Date Time Status Admission Status [Patient Status] [ADT] Routine ADT 07/14/20 14:58 Active Notify Provider Vital Signs [RC] ASDIRECTED Care 07/14/20 15:16 Active Oxygen Therapy [RC] PRN Care 07/14/20 15:16 Active Up With Assistance [RC] ASDIRECTED Care 07/14/20 15:16 Active VTE/DVT Education [RC] PER UNIT ROUTINE Care 07/14/20 15:16 Active Vital Signs [RC] Q4H Care 07/14/20 15:16 Active [employer] Diet [DIET] Diet 07/14/20 Dinner Active BASIC METABOLIC PANEL,BMP [CHEM] Routine Lab 07/14/20 19:00 Ordered CBC WITH AUTO DIFF [HEME] Routine Lab 07/14/20 19:00 Ordered CULTURE MRSA SURVEY [RM] Routine Lab 07/14/20 15:57 Received INR,PT,PROTHROMBIN TIME [COAG] Routine Lab 07/14/20 19:00 Ordered Acetaminophen [TylenoL] Med 07/14/20 16:12 Ordered 650 mg PO Q4HR PRN Aspirin Med 07/14/20 20:00 Ordered 81 mg PO BEDTIME Cholecalciferol (Vitamin D3) [Vitamin D3] Med 07/15/20 08:00 Ordered 50 mcg PO DAILY Docusate Sodium [Colace] Med 07/15/20 08:00 Ordered 100 mg PO DAILY Fexofenadine Med 07/15/20 08:00 Ordered 60 mg PO DAILY Fluticasone Propionate [Flonase] Med 07/14/20 20:00 Ordered 1 spray NASBOTH BID Gabapentin [Neurontin] Med 07/14/20 20:00 Ordered 400 mg PO BID Magnesium Oxide Med 07/15/20 08:00 Ordered 400 mg PO DAILY Menthol [Biofreeze] Med 07/14/20 20:00 Ordered 1 applic TOP BID Metoprolol Succinate [Toprol XL] Med 07/15/20 08:00 Ordered 12.5 mg PO DAILY Pantoprazole [ProTONIX] Med 07/15/20 08:00 Ordered 40 mg PO DAILY Rosuvastatin [Crestor] Med 07/16/20 08:00 Ordered 5 mg PO MOWEFR@08 Sodium Chloride 0.65% [[place] Nasal [place]] Med 07/14/20 16:15 Ordered 1 spray NASBOTH Q4H Sodium Chloride 0.9% [Normal Saline] 1,000 ml Med 07/14/20 15:30 Active IV ASDIRECTED Warfarin [Coumadin] Med 07/15/20 08:00 Ordered 10 mg PO DAILY amLODIPine [Norvasc] Med 07/15/20 08:00 Ordered 10 mg PO DAILY carBAMazepine [Equetro] Med 07/14/20 20:00 Ordered 300 mg PO BID polyethylene glycoL 3350 [MiraLAX] Med 07/15/20 08:00 Ordered 17 gm PO DAILY Anticoagulation Contraindications VTE [AST] Per Unit Oth 07/14/20 15:16 Ordered Routine Resuscitation Status Routine Resus Stat 07/14/20 15:16 Ordered Medication Orders Acetaminophen (Tylenol) 650 mg PO Q4HR PRN PRN Reason: Pain/Fever Amlodipine Besylate (Norvasc) 10 mg PO DAILY АНДРЕЙ Aspirin (Aspirin) 81 mg PO BEDTIME АНДРЕЙ Docusate Sodium (Colace) 100 mg PO DAILY АНДРЙЕ Gabapentin (Neurontin) 400 mg PO BID АНДРЕЙ Sodium Chloride (Normal Saline) 1,000 mls @ 100 mls/hr IV ASDIRECTED АНДРЕЙ Magnesium Oxide (Magnesium Oxide) 400 mg PO DAILY АНДРЕЙ Metoprolol Succinate (Toprol Xl) 12.5 mg PO DAILY АНДРЕЙ Non-Formulary Medication (Carbamazepine [Equetro]) 300 mg PO BID АНДРЕЙ Non-Formulary Medication (Rosuvastatin [Crestor]) 5 mg PO MOWEFR@08 АНДРЕЙ Non-Formulary Medication (Fexofenadine) 60 mg PO DAILY АНДРЕЙ Non-Formulary Medication (Fluticasone Propionate [Flonase]) 1 spray NASBOTH BID АНДРЕЙ Non-Formulary Medication (Menthol [Biofreeze]) 1 applic TOP BID АНДРЕЙ Non-Formulary Medication (Cholecalciferol (Vitamin D3) [Vitamin D3]) 50 mcg PO DAILY АНДРЕЙ Pantoprazole Sodium (Protonix) 40 mg PO DAILY АНДРЕЙ Polyethylene Glycol (Miralax) 17 gm PO DAILY [facility] Sodium Chloride ([place] Nasal [place]) ml NASBOTH Q4H АНДРЕЙ Warfarin Sodium (Coumadin) 10 mg PO DAILY [facility] Assessment/Plan Comment:: #1 Hyponatremia #2 Dehydration #3 Side effects from vaccination - Suspect symptoms started from vaccine side effects which led to decreased oral intake and then to acute on chronic hyponatremia. No evidence of fluid overload. No other medication changes recently that would be expected to worsen chronic hyponatremia. - Will give gentle IV fluids of 0.9% NaCl at 100 mL/hr. - Will recheck labs at 7 pm and reassess rate/treatment plan based on those results. - Hold lasix and this will likely be discontinued indefinitely. - Further evaluation as indicated by clinical course but likely limited necessity given she had an extensive evaluation last year in [place] for the same reason with no other identified cause besides decreased oral intake. #4 Delirium - Likely related to above. No s/s of infection and vital signs are otherwise stable. - Will do additional lab with repeat sodium at 7 pm. - CT scan given patient is on warfarin and fell overnight. - If work-up negative, will monitor for improvement with correction of sodium. #5 A-fib #6 CAD #7 h/o CVA #8 CHF #9 HLD #10 HTN - Check INR with evening labs. - Hold lasix. - Continue all other home medications for above. #11 DM - QID glucose checks. - Continue glipizide but hold metformin. - Will assess need for SSI depending on glucose readings. #12 OA #13 Trigeminal neuralgia #14 B12 deficiency #15 Constipation #16 Allergies #17 GERD - Although her Tegretol could be a contributor to her sodium issues, this has been longstanding and the sodium issues are newer, which makes this less likely. - Continue home medications apart from her PRN carbamazepine. Patient will be admitted to acute in light of concerns as above - anticipate admission spanning 2 midnights at least. See detailed plans as above. Code status is full - discussed with patient on admission. No need for VTE prophylaxis given she is on warfarin, as long as her INR is therapeutic when checked this evening.
[2020-07-14] MEDS: Sodium Chloride 0.9% 1,000 ML IV SCH (16:37)
[2020-07-14] MEDS: Sodium Chloride 0.65% Nasal Spray 45 ML Bottle NASBOTH SCH ×2 (17:55→20:01)
[2020-07-14 19:49] LABS: ANION GAP 15.3 mmol/L (5-15)
[2020-07-14] MEDS: Fluticasone Propionate Nasal Spray 9.9 ML BOTTLE NASBOTH SCH (20:00)
[2020-07-14] MEDS: Gabapentin 400 MG Cap PO SCH (20:00)
[2020-07-14] MEDS: Aspirin 81 MG Tab.EC PO SCH (20:00)
[2020-07-14] MEDS: carBAMazepine 100 MG Cap.ER PO SCH (20:00)
[2020-07-14] MEDS: Non-Formulary Medication 1 Each (Menthol [Biofreeze] 1 APPLIC) TOP SCH (20:01)
[2020-07-15] MEDS: Sodium Chloride 0.65% Nasal Spray 45 ML Bottle NASBOTH SCH ×6 (01:50→20:14)
[2020-07-15] MEDS: Sodium Chloride 0.9% 1,000 ML IV SCH ×2 (01:53→13:20)
[2020-07-15] MEDS: Pantoprazole 40 MG Tab.CR PO SCH (06:39)
[2020-07-15 07:24] LABS: CHLORIDE,CL 92 mmol/L (98-107)
[2020-07-15 07:28] LABS: ANION GAP 13.9 mmol/L (5-15); SODIUM,NA 128 mmol/L (136-145)
[2020-07-15] MEDS: Polyethylene Glycol 3350 Powder 17 GM Packet PO SCH (07:54)
[2020-07-15] MEDS: carBAMazepine 100 MG Cap.ER PO SCH ×2 (07:54→20:12)
[2020-07-15] MEDS: Metoprolol Succinate 25 MG Tab.ER PO SCH (07:55)
[2020-07-15] MEDS: Cholecalciferol (Vitamin D3) 25 MCG Tab PO SCH (07:55)
[2020-07-15] MEDS: amLODIPine 10 MG Tab PO SCH (07:59)
[2020-07-15] MEDS ORDERED: FEXOFENADINE 60 MG PO SCH (08:00)
[2020-07-15] MEDS: Gabapentin 400 MG Cap PO SCH ×2 (08:00→20:11)
[2020-07-15] MEDS: Docusate Sodium 100 MG Cap PO SCH (08:00)
[2020-07-15] MEDS: Non-Formulary Medication 1 Each (Menthol [Biofreeze] 1 APPLIC) TOP SCH ×2 (08:01→20:13)
[2020-07-15] MEDS: Fluticasone Propionate Nasal Spray 9.9 ML BOTTLE NASBOTH SCH ×2 (08:01→20:14)
[2020-07-15] MEDS: Magnesium Oxide 400 MG Tab PO SCH (08:02)
--- NOTE | 2020-07-15 08:11 | PCM.PN ---
- General Info Date of Service: 07/15/20 Subjective Update: 85 yo female hospital day #2 admitted with hyponatremia and dehydration felt to be secondary to poor PO intake from decreased appetite related to the COVID vaccination. She is not sure she feels any different today overall but does note that she feels more alert. She is eating breakfast at the time of my visit but does not really feel that her appetite is much better; she is just eating because they gave her food. No nausea or vomiting. No diarrhea. She is wondering if she should add more salt to her food. She has not been out of bed yet. - Review of Systems General: Reports: No Symptoms HEENT: Reports: No Symptoms Pulmonary: Reports: No Symptoms Cardiovascular: Reports: No Symptoms Gastrointestinal: Reports: No Symptoms Genitourinary: Reports: No Symptoms Musculoskeletal: Reports: No Symptoms Skin: Reports: No Symptoms Neurological: Reports: No Symptoms - Patient Data Vitals - Most Recent: Last Vital Signs Temp 36.8 C 07/15/20 05:41 Pulse 73 07/15/20 05:41 Resp 20 07/15/20 05:41 BP 172/52 H 07/15/20 05:41 Pulse Ox 98 07/15/20 05:41 Weight - Most Recent: 77.973 kg I&O - Last 24 Hours: Intake & Output 07/14/20 07/15/20 07/15/20 22:59 06:59 14:59 Intake Total 128 1200 Output Total 300 750 Balance -172 450 Lab Results Last 24 Hours: Laboratory Results - last 24 hr 07/14/20 07/14/20 07/14/20 Range/Units 19:14 19:14 19:14 WBC 4.3 (4.0-10.0) x10^3/uL RBC 3.41 L (4.00-5.50) x10^6/uL Hgb 10.2 L (12.0-16.0) g/dL Hct 28.8 L (33.0-47.0) % MCV 84.5 D (78.0-93.0) fL MCH 29.9 (26.0-32.0) pg MCHC 35.4 (32.0-36.0) g/dL RDW Coeff of Tiffany 14.1 (10.0-15.0) % Plt Count 150 (130-400) x10^3/uL Neut % (Auto) 72.3 (50.0-80.0) % Lymph % (Auto) 10.6 L (25.0-50.0) % [place] % (Auto) 15.0 H (2.0-11.0) % Eos % (Auto) 1.4 (0.0-4.0) % Baso % (Auto) 0.7 (0.2-1.2) % Add Manual Diff Neutrophils % (Manual) (50-80) % Band Neutrophils % (0-6) % Lymphocytes % (Manual) (25-50) % Monocytes % (Manual) (2-11) % Eosinophils % (Manual) (0-4) % Basophils % (Manual) (0-1) % Metamyelocytes % (0) % Platelet Estimate PT 27.5 H (9.9-12.5) SEC INR 2.5 (2.0-3.5) Sodium 124 L* (136-145) mmol/L Potassium 4.3 (3.5-5.1) mmol/L Chloride 87 L (98-107) mmol/L Carbon Dioxide 26 (21-32) mmol/L Anion Gap 15.3 H (5-15) mmol/L BUN 23 H (7-18) mg/dL Creatinine 1.1 H (0.55-1.02) mg/dL Est Cr Clr Drug Dosing 29.57 mL/min Estimated GFR (MDRD) 47 Glucose 197 H (74-106) mg/dL Calcium 9.0 (8.5-10.1) mg/dL 07/15/20 07/15/20 Range/Units 06:36 06:36 WBC 3.5 L (4.0-10.0) x10^3/uL RBC 3.54 L (4.00-5.50) x10^6/uL Hgb 10.5 L (12.0-16.0) g/dL Hct 30.6 L (33.0-47.0) % MCV 86.4 (78.0-93.0) fL MCH 29.7 (26.0-32.0) pg MCHC 34.3 (32.0-36.0) g/dL RDW Coeff of Tiffany 13.9 (10.0-15.0) % Plt Count 141 (130-400) x10^3/uL Neut % (Auto) (50.0-80.0) % Lymph % (Auto) (25.0-50.0) % [place] % (Auto) (2.0-11.0) % Eos % (Auto) (0.0-4.0) % Baso % (Auto) (0.2-1.2) % Add Manual Diff Yes Neutrophils % (Manual) 54 (50-80) % Band Neutrophils % 4 (0-6) % Lymphocytes % (Manual) 23 L (25-50) % Monocytes % (Manual) 14 H (2-11) % Eosinophils % (Manual) 3 (0-4) % Basophils % (Manual) 1 (0-1) % Metamyelocytes % 1 H (0) % Platelet Estimate Adequate PT (9.9-12.5) SEC INR (2.0-3.5) Sodium 128 L* (136-145) mmol/L Potassium 3.9 (3.5-5.1) mmol/L Chloride 92 L (98-107) mmol/L Carbon Dioxide 26 (21-32) mmol/L Anion Gap 13.9 (5-15) mmol/L BUN 21 H (7-18) mg/dL Creatinine 0.8 (0.55-1.02) mg/dL Est Cr Clr Drug Dosing 40.66 mL/min Estimated GFR (MDRD) > 60 Glucose 176 H (74-106) mg/dL Calcium 8.7 (8.5-10.1) mg/dL Med Orders - Current: Current Medications Acetaminophen (Tylenol) 650 mg PO Q4HR PRN PRN Reason: Pain/Fever Amlodipine Besylate (Norvasc) 10 mg PO DAILY [facility] Aspirin (Halfprin) 81 mg PO BEDTIME [facility] Last Admin: 07/14/20 20:00 Dose: 81 mg Documented by: Atorvastatin Calcium (Lipitor) 10 mg PO MOWEFR@08 [facility] Carbamazepine (Tegretol Xr) 300 mg PO BID [facility] Last Admin: 07/14/20 20:00 Dose: 300 mg Documented by: Cholecalciferol (Vitamin D3) 50 mcg PO DAILY [facility] Docusate Sodium (Colace) 100 mg PO DAILY [facility] Fluticasone Propionate (Fluticasone Propionate) 0 ml NASBOTH BID [facility] Last Admin: 07/14/20 20:00 Dose: 1 spray Documented by: Gabapentin (Neurontin) 400 mg PO BID [facility] Last Admin: 07/14/20 20:00 Dose: 400 mg Documented by: Sodium Chloride (Normal Saline) 1,000 mls @ 100 mls/hr IV ASDIRECTED [facility] Last Admin: 07/15/20 01:53 Dose: 100 mls/hr Documented by: Magnesium Oxide (Magnesium Oxide) 400 mg PO DAILY [facility] Metoprolol Succinate (Toprol Xl) 12.5 mg PO DAILY [facility] Non-Formulary Medication (Fexofenadine) 60 mg PO DAILY [facility] Non-Formulary Medication (Menthol [Biofreeze]) 1 applic TOP BID [facility] Last Admin: 07/14/20 20:01 Dose: 1 applic Documented by: Pantoprazole Sodium (Protonix) 40 mg PO ACBREAKFAST [facility] Last Admin: 07/15/20 06:39 Dose: 40 mg Documented by: Polyethylene Glycol (Miralax) 17 gm PO DAILY [facility] Sodium Chloride ([place] Nasal [place]) 0 ml NASBOTH Q4H [facility] Last Admin: 07/15/20 04:19 Dose: 1 spray Documented by: Warfarin Sodium (Coumadin) 10 mg PO DAILY@1999 [facility] - Exam General: Alert, Cooperative, No Acute Distress HEENT: Pupils Equal, Pupils Reactive, Mucous Membr. Moist/[place] Neck: Supple, Trachea Midline, No Thyromegaly. No: Lymphadenopathy Lungs: Clear to Auscultation, Normal Respiratory Effort Cardiovascular: Regular Rate, No Murmurs, Irregular Rhythm GI/Abdominal Exam: Normal Bowel Sounds, Soft, Non-Tender, No Organomegaly, No Distention, No Mass Extremities: Normal Inspection, Non-Tender, No Pedal Edema Peripheral Pulses: 2+: Radial (L), Radial (R) Skin: Warm, Dry, Intact Neurological: No New Focal Deficit Sepsis Event Note - Evaluation Sepsis Screening Result: No Definite Risk - Focused Exam Vital Signs: Vital Signs Temp Pulse Resp BP Pulse Ox 07/15/20 05:41 36.8 C 73 20 172/52 H 98 07/15/20 02:00 36.3 C 59 L 16 110/30 L 96 07/14/20 22:00 36.8 C 65 16 144/47 H 97 - Problem List & Annotations (1) Hyponatremia SNOMED Code(s): 11708256 Code(s): E87.1 - HYPO-OSMOLALITY AND HYPONATREMIA Status: Acute Current Visit: Yes (2) Dehydration SNOMED Code(s): 37994045 Code(s): E86.0 - DEHYDRATION Status: Acute Current Visit: Yes (3) Side effects of vaccination SNOMED Code(s): 017471301 Code(s): T50.Z95A - ADVERSE EFFECT OF VACCINES AND BIOLOGICAL SUBSTANCES, INIT Status: Acute Current Visit: Yes Qualifiers: Encounter type: initial encounter Qualified Code(s): T50.Z95A - Adverse effect of other vaccines and biological substances, initial encounter (4) Delirium SNOMED Code(s): 9219190 Code(s): R41.0 - DISORIENTATION, UNSPECIFIED Status: Acute Current Visit: Yes (5) Atrial fibrillation SNOMED Code(s): 15207772 Code(s): I48.91 - UNSPECIFIED ATRIAL FIBRILLATION Status: Chronic Current Visit: No Qualifiers: Atrial fibrillation type: longstanding persistent Qualified Code(s): I48.11 - Longstanding persistent atrial fibrillation (6) CAD (coronary artery disease) SNOMED Code(s): 69624231 Code(s): I25.10 - ATHSCL HEART DISEASE OF [place] CORONARY ARTERY W/O ANG PCTRS Status: Chronic Current Visit: No Qualifiers: Coronary Disease-Associated Artery/Lesion type: [place] artery [place] vs. transplanted heart: [place] heart Associated angina: without angina Qualified Code(s): I25.10 - Atherosclerotic heart disease of [place] coronary artery without angina pectoris (7) CVA (cerebral vascular accident) SNOMED Code(s): 489355626 Code(s): I63.9 - CEREBRAL INFARCTION, UNSPECIFIED Status: Chronic Current Visit: No Qualifiers: CVA mechanism: unspecified Qualified Code(s): I63.9 - Cerebral infarction, unspecified (8) Heart failure SNOMED Code(s): 95008953 Code(s): I50.9 - HEART FAILURE, UNSPECIFIED Status: Chronic Current Visit: No (9) Hypercholesteremia SNOMED Code(s): 11233966 Code(s): E78.00 - PURE HYPERCHOLESTEROLEMIA, UNSPECIFIED Status: Chronic Current Visit: No (10) Hypertension SNOMED Code(s): 44151815 Code(s): I10 - ESSENTIAL (PRIMARY) HYPERTENSION Status: Chronic Current Visit: No Qualifiers: Hypertension type: essential hypertension Qualified Code(s): I10 - Essential (primary) hypertension (11) DM2 (diabetes mellitus, type 2) SNOMED Code(s): 77963333 Code(s): E11.9 - TYPE 2 DIABETES MELLITUS WITHOUT COMPLICATIONS Status: Chronic Current Visit: No Qualifiers: Diabetes mellitus terminal computer operator insulin use: without terminal computer operator use Diabetes mellitus complication status: without complication Qualified Code(s): E11.9 - Type 2 diabetes mellitus without complications (12) Osteoarthritis SNOMED Code(s): 795428301 Code(s): M19.90 - UNSPECIFIED OSTEOARTHRITIS, UNSPECIFIED SITE Status: Chronic Current Visit: No Qualifiers: Osteoarthritis location: multiple joints Osteoarthritis type: primary (13) Trigeminal neuralgia SNOMED Code(s): 76322999 Code(s): G50.0 - TRIGEMINAL NEURALGIA Status: Chronic Current Visit: No (14) B12 deficiency SNOMED Code(s): 415617554 Code(s): E53.8 - DEFICIENCY OF OTHER SPECIFIED B GROUP VITAMINS Status: Chronic Current Visit: No (15) Constipation SNOMED Code(s): 76686390 Code(s): K59.00 - CONSTIPATION, UNSPECIFIED Status: Chronic Current Visit: Yes Qualifiers: Constipation type: unspecified constipation type Qualified Code(s): K59.00 - Constipation, unspecified (16) Allergic rhinitis SNOMED Code(s): 58208138 Code(s): J30.9 - ALLERGIC RHINITIS, UNSPECIFIED Status: Chronic Current Visit: Yes Qualifiers: Allergic rhinitis trigger: unspecified Allergic rhinitis seasonality: unspecified Qualified Code(s): J30.9 - Allergic rhinitis, unspecified (17) GERD (gastroesophageal reflux disease) SNOMED Code(s): 260257702 Code(s): K21.9 - GASTRO-ESOPHAGEAL REFLUX DISEASE WITHOUT ESOPHAGITIS Status: Chronic Current Visit: Yes - Problem List Review Problem List Initiated/Reviewed/Updated: Yes - My Orders Last 24 Hours: My Active Orders 07/14/20 14:58 Admission Status [Patient Status] [ADT] Routine 07/14/20 15:16 Notify Provider Vital Signs [RC] 02,06,10,14,18,22 Oxygen Therapy [RC] .PRN Up With Assistance [RC] 08,20 VTE/DVT Education [RC] .PRN Vital Signs [RC] 02,06,10,14,18,22 Anticoagulation Contraindications VTE [AST] Per Unit Routine Resuscitation Status Routine 07/14/20 15:30 Sodium Chloride 0.9% [Normal Saline] 1,000 ml IV ASDIRECTED 07/14/20 15:57 CULTURE MRSA SURVEY [RM] Routine 07/14/20 16:12 Acetaminophen [TylenoL] 650 mg PO Q4HR PRN 07/14/20 17:00 Sodium Chloride 0.65% [[place] Nasal [place]] 0 ml NASBOTH Q4H 07/14/20 [employer] Diet [DIET] 07/14/20 20:00 Aspirin [Halfprin] 81 mg PO BEDTIME Fluticasone Propionate 0 ml NASBOTH BID Gabapentin [Neurontin] 400 mg PO BID Menthol [Biofreeze] 1 applic TOP BID carBAMazepine [TEGretol XR] 300 mg PO BID 07/15/20 07:00 Pantoprazole [ProTONIX] 40 mg PO ACBREAKFAST 07/15/20 07:56 PT Evaluation and Treatment [CONS] Routine 07/15/20 08:00 Cholecalciferol (Vitamin D3) [Vitamin D3] 50 mcg PO DAILY Docusate Sodium [Colace] 100 mg PO DAILY Fexofenadine 60 mg PO DAILY Magnesium Oxide 400 mg PO DAILY Metoprolol Succinate [Toprol XL] 12.5 mg PO DAILY amLODIPine [Norvasc] 10 mg PO DAILY polyethylene glycoL 3350 [MiraLAX] 17 gm PO DAILY 07/15/20 14:00 BASIC METABOLIC PANEL,BMP [CHEM] Routine 07/15/20 20:00 Warfarin [Coumadin] 10 mg PO DAILY@199907/16/20 08:00 atorvaSTATin [Lipitor] 10 mg PO MOWEFR@08 - Assessment Assessment:: 85 yo female hospital day #2 admitted with hyponatremia and dehydration pretty matt to decreased oral intake. Labs are improving. Patient more like herself today as well. - Plan Plan:: #1 Hyponatremia #2 Dehydration #3 Side effects from vaccination - Na improved to 128 this morning from 124 last evening. Correction rate is appropriate, especially as she is doing much better this morning. - Continue 0.9% NaCl at 100 mL/hr. - Will recheck labs at 2 pm. If sodium is 130 or higher, will d/c IV fluids. - Hold lasix and this will likely be discontinued indefinitely. #4 Delirium, improving - Likely related to above. - CT negative last night. #5 A-fib #6 CAD #7 h/o CVA #8 CHF #9 HLD #10 HTN - INR therapeutic with evening labs. Will recheck again tomorrow am. - Hold lasix. - Continue all other home medications for above. #11 DM - QID glucose checks. - Continue glipizide but hold metformin. - Will assess need for SSI depending on glucose readings. #12 OA #13 Trigeminal neuralgia #14 B12 deficiency #15 Constipation #16 Allergies #17 GERD - Although her Tegretol could be a contributor to her sodium issues, this has been longstanding and the sodium issues are newer, which makes this less likely. - Continue home medications apart from her PRN carbamazepine. Patient will remain on acute for today - anticipate d/c tomorrow or the following day. See detailed plans as above. Code status is full - discussed with patient on admission. No need for VTE prophylaxis given she is on warfarin and her INR is therapeutic.
--- OUTSIDE RECORDS SUMMARY | 2020-07-15 09:16 | XMSREPORT | Referral Summary ---
:1935 Author Organization [facility] Address [address] [place] [address] [address] [place] [address] Care Team Providers Name Role Phone MD Arian Primary Care Provider MD Arian Attributed Provider Reason for Referral Transitions of Care (Routine) Status Reason Specialty Diagnoses / Referred By Referred To Procedures Contact Contact New Request Service Not Diagnoses Hyponatremia Martin Don [facility] Available at MD [place] [facility] [address] [facility] [address] [facility] [id number] [place] [address] Phone: [phone] Phone: Encounter Details Date Type Department Care Team Description 07/14/2020 Telephone [facility] Cheyenne Wheatley MD CLINIC [address] [place], [place] [id number] [place] [phone] Allergies No Known Allergiesdocumented as of this encounter (statuses as of 07/14/2020) Medications Medication Sig Dispensed Refills Start Date End Date Status lancets MISC Use to test blood twice 100 each 0 01/28/2013 Active daily Additional Information Patient taking differently: DAILY, Use to test blood twice daily, Informant: MED Bottles or MED List, Reported on 12/02/2019 10:30 PM vitamin D3, Take 2,000 Units by mouth 0 Active cholecalciferol, 2000 unit 1 time per day capsule magnesium oxide (MAG-OX Take 1 tablet (400 mg) by 14 tablet 0 08/01/2016 Active 400) 400 mg mouth 1 time per day tabletIndications: Hypomagnesemia blood glucose test strip 1 Strip 1 time per day 100 each 3 Active (PRODIGY TEST)Indications: Use to test blood as Type 2 diabetes mellitus directed twice daily Type without complication, II diabetes mellitus without long-term current [250.00] non insulin use of insulin ([facility]) dependent. meclizine (ANTIVERT) 25 mg Take 1 tablet (25 mg) by 90 tablet 0 11/09/2017 Active tablet mouth 2 times a day as needed for dizziness aspirin 81 mg enteric Take 81 mg by mouth 1 0 Active coated tablet time per day warfarin (COUMADIN) 5 mg TAKE DIRECTED BY 90 tablet 4 07/11 Active tabletIndications: ANTICOAGULATION CLINIC IN [facility], fibrillation ([facility]) pantoprazole (PROTONIX) 40 TAKE 1 TABLET BY MOUTH 90 tablet 3 09/11/2018 Active mg enteric coated EVERY MORNING tabletIndications: Gastroesophageal reflux disease without esophagitis gemfibrozil (LOPID) 600 mg TAKE 1 TABLET 2 TIMES A 180 tablet 4 12/09/2018 Active tabletIndications: DAY Hyperlipidemia, unspecified carBAMazepine (CARBATROL TAKE 1 CAPSULE BY MOUTH 2 180 capsule 3 12/09/2018 Active XR) 300 mg extended TIMES A DAY (WITH 400MG release CAPS FOR SEVERE PAIN capsuleIndications: Trigeminal neuralgia metFORMIN (GLUCOPHAGE) Take 0.5 tablets (500 mg) 90 tablet 4 0 12/09/2018 Active 1000 MG tabletIndications: by mouth 2 times a day Type 2 diabetes mellitus without complication, without long-term current use of insulin ([facility]) cyanocobalamin (VITAMIN INJECT 1.5 MLS (1,500 MCG 6 mL 3 01/14/2019 Active B-12) 1000 mcg/mL TOTAL) INTRAMUSCULARLY 1 injection TIME A MONTH solutionIndications: Vitamin B12 deficiency rosuvastatin (CRESTOR) 5 Take 1 tablet (5 mg) by 45 tablet 4 0 02/07/2019 Active mg tabletIndications: Type mouth on Sunday, 2 diabetes mellitus Sunday, and Sunday without complication, without long-term current use of insulin ([facility]), Mixed hyperlipidemia docusate sodium (COLACE) Take 100 mg by mouth 1 0 Active 100 mg capsule time per day fluticasone (FLONASE) 50 [place] 1 spray into each 1 Bottle 12 1 07/17/2018 Active mcg/spray nasal nostril 2 times a day sprayIndications: Postnasal drip menthol topical analgesic Apply topically 2 times a 0 06/12/2019 Active (BIOFREEZE) 4 % GEL gel day metoprolol succinate Take 12.5 mg by mouth 1 45 tablet 4 07/30 Active (TOPROL XL) 25 mg SR time per day tablet (24 hr)Indications: Atrial fibrillation with tachycardic ventricular rate ([facility]) amLODIPine (NORVASC) 5 mg Take 1 tablet (5 mg) by 90 tablet 4 11/27/2019 Active tablet mouth 1 time per day trolamine salicylate Apply topically 4 times a 0 Active (ASPERCREME) 10 % CREA day as needed for mild pain fexofenadine (JEZ) 60 Take 1 tablet by mouth 1 0 Active mg tablet time per day saline nasal spray [place] 1 spray into each 0 Active (AYR,OCEAN) 0.65 % nasal nostril Every 4 hours spray gabapentin (NEURONTIN) 400 Take 1 capsule (400 mg) 180 capsule 1 12/04/2019 Active mg capsuleIndications: by mouth 2 times a day Trigeminal neuralgia acetaminophen (TYLENOL) Take 650 mg by mouth 0 Active 325 mg tablet Every 4 hours as needed for mild pain or fever > (indicate temp) carBAMazepine (TEGRETOL Take 400 mg by mouth 1 0 Active XR) 400 mg SR tablet (12 time a day as needed for hr) other (Specify) polyethylene glycol Take 3 teaspoonsful (17 0 2019 Active (MIRALAX) 17 GM/SCOOP g) by mouth 1 time per powder day Dissolve in 4 to 8 ounces of water, juice, soda, coffee, tea. glipiZIDE ER (GLIPIZIDE Take 2 tablets (20 mg) by 90 tablet 3 06/29/2020 Active XL) 10 mg extended release mouth 1 time per day TAKE tablet (24 hr)Indications: 1 TABLET BY MOUTH IN THE Type 2 diabetes mellitus MORNING without complication, without long-term current use of insulin ([facility]) furosemide (LASIX) 20 mg Take 0.5 tablets (10 mg) 0 06/29/2020 Active tablet by mouth 1 time per day documented as of this encounter (statuses as of 07/14/2020) Active Problems Problem Noted Date Hyponatremia 12/02/2019 Hyperkalemia 12/02/2019 Normocytic anemia 12/02/2019 Pain in both hands 06/24/2018 Chronic anticoagulation 04/26/2018 Atrial fibrillation, persistent 04/26/2018 Gastroesophageal reflux disease without esophagitis S/P YAG capsulotomy 12/11/2016 Physical deconditioning 10/31/2016 Chronic constipation 08/01/2016 Overview: Uses prn miralax Hypomagnesemia 12/09/2014 Pseudophakia 03/03/2014 Myopia 03/03/2014 Complete heart 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 Cunningham Adjustment made to the AV delay do short ness of breath and fatigue 10/2012 Vertigo 08/12/2012 Overview: 12/07/2010 MRI Small vessel ishemic kumar ges,hospitalized Cerebrovascular accident (CVA) due to occlusion of lef t middle cerebral 02/23/2010 artery Overview: L CVA with RUE weakness and gait abn. Juarez d MRI 12/03/09 adn extensive small vessel dx. On Plavix 02/23/10. High risk medication use 08/12/2009 Iron deficiency anemia 08/12/2009 Vitamin D deficiency 07/01/2009 Overview: 06/20 onset.was 2015 at 16. Peripheral autonomic neuropathy 11/28/2007 Overview: both feet with no plantar sensation note d since November 28, 2007. Vitamin B 12 deficiency 06/11/2007 Overview: Onset 2007, Goal is 400 or over. On inj ections, dose increase 08/10/16 to 1500 mcg q month. Trigeminal neuralgia 10/23/2005 Overview: 2006 affects right side. Seen by tia hernandez. Is on tegretol. 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 Her most recent DEXA scan July 02, 2008,osteopenia. . 12/09/13 wi ll do 1 yr drug holiday of fosamax. 12/23/15 stable bone T lumbar -1.6, hip -1.3. No meds now. Pure hypercholesterolemia Benign essential hypertension Type 2 diabetes mellitus without complication, without long-term current use of insulin Coronary artery disease due to lipid rich plaque Overview: Left heart catheterization 2011 mild to moderate coronary disease no occlusive disease. Abnormal Cardiolite stress test 2002.consult by Dr. Jean Baptiste in August of 2005 abnormal echocardiogram with some valvul ar heart disease. A Cardiolite stress test had been questionably positive in Jean, or mildly positive. questionable heart attack in 2002. She had been to cardiac rehab, but that was because she was found to have a mild ischemic defect by her adeno sine Cardiolite study. Diverticulosis of large intestine without hemorrhage Overview: BE 2001. colonoscopy was in 2005 again in 2009. Valvular heart disease Overview: MR echo 2005. Echo Feb 2008 EFf 70%, mild diastolic dysfn, mild AR, mild pulmonary stenosis. ECHO 02/08/15 EF 70%,mild daniel t dysfn, mild AI, mild MS, nl PAP, mild TR, unchanged. Cervical cancer Overview: had hysterectomy Parotid mass Overview: Right side, anterior to coronoid. CT on 03/31/14 indeterminate.right, excised on 05/25/2014, basal adenoma Alopecia Overview: 2012 had normal thyroid levels, 2014 sta rt otc supplement. Osteoarthritis of left knee Chronic allergic rhinitis documented as of this encounter (statuses as of 07/14/2020) Resolved Problems Problem Noted Date Resolved Date Presbyopia 03/03/2014 01/20/2019 Senile cataract 12/11/2016 documented as of this encounter (statuses as of 07/14/2020) Immunizations Name Administration Dates Next Due FLU VACCINE HIGH DOSE 65YR+(Fluzone) 03/22/2020, 02/26/2018, 03/09/2017, 03/16/2016, 03/25/2015, 04/28/2014, 03/09/2014, 03/27/2013 Influenza Vaccine,unspecified 02/20/2019 Pneumococcal Conj PCV13 06/22/2015 Pneumococcal Polysaccharide PPSV23 05/03/1999 TDAP 06/25/2009 Td(adult)preservative free 05/03/1999 Zoster Live(Zostavax) 04/19/2016 documented as of this encounter Social History Tobacco Use Types Packs/Day Years Used Date Never Smoker Smokeless Tobacco: Never Used Alcohol Use Drinks/Week oz/Week Comments No Sex Assigned at Date Recorded Not on file documented as of this encounter Functional Status Functional Status Response Date of Assessment Is the person deaf or does he/she have serious difficulty No 12/03/2019 hearing? Is this person blind or does he/she have difficulty No 12/03/2019 seeing even when wearing glasses? Do you have difficulty with walking, balance, climbing Yes 12/02/2019 stairs, or had a fall in the last 3 months? Does the patient have difficulty dressing or bathing? No 12/02/2019 Because of a physical, mental, or emotional condition; No 12/02/2019 does this person have difficulty doing errands alone such as visiting a doctor's office or shopping? Cognitive Status Response Date of Assessment Because of a physical, mental, or emotional condition; No 12/02/2019 does this person have serious difficulty concentrating, remembering, or making decisions? documented as of this encounter Miscellaneous Notes Telephone Encounter - [place] Don MD - 07/14/2020 4:22 PM [facility] Plan of Treatment Date Type Specialty Care Team Description 08/09/2020 Clinical Support Visit Cardiovascular Services Name Type Priority Associated Diagnoses Order S [facility] REFERRAL FAMILY Referral Routine Hyponatremia Order ed: 07/14/2020 MEDICINE NON ONE CHART documented as of this encounter Implants Implanted Type Area Heat Treat Worker Device Shelf Model / Identifier Expiration Serial / Date Lot Medtronic Dual Chamber Pacemaker Cardiovascular Left: MEDTRONIC [id number] VERSA / Implanted: 10/23/2011 by Nolan Leggett MD (Quantit y not on file) CHEST [id number] / Explanted: (Quantity not on file) Description: documented as of this encounter Visit Diagnoses Diagnosis Hyponatremia - Primary Hyposmolality and/or hyponatremia documented in this encounter
[2020-07-15 14:23] LABS: ANION GAP 13.1 mmol/L (5-15)
[2020-07-15] MEDS ORDERED: Sodium Chloride 0.9% 10 ML Syringe FLUSH PRN (19:53)
[2020-07-15] MEDS ORDERED: Warfarin 5 MG Tab PO SCH (20:00)
[2020-07-15] MEDS: Aspirin 81 MG Tab.EC PO SCH (20:11)
[2020-07-16] MEDS: Sodium Chloride 0.65% Nasal Spray 45 ML Bottle NASBOTH SCH ×3 (00:48→09:20)
[2020-07-16 05:28] VITALS: BP 153/58; PULSE 60
[2020-07-16] MEDS: Pantoprazole 40 MG Tab.CR PO SCH (06:22)
[2020-07-16 06:51] LABS: ANION GAP 15.1 mmol/L (5-15); CHLORIDE,CL 97 mmol/L (98-107); SODIUM,NA 133 mmol/L (136-145)
[2020-07-16] MEDS ORDERED: atorvaSTATin 10 MG Tab PO SCH (08:00)
[2020-07-16] MEDS: Gabapentin 400 MG Cap PO SCH (09:19)
[2020-07-16] MEDS: amLODIPine 10 MG Tab PO SCH (09:19)
[2020-07-16] MEDS: Cholecalciferol (Vitamin D3) 25 MCG Tab PO SCH (09:19)
[2020-07-16] MEDS: Magnesium Oxide 400 MG Tab PO SCH (09:19)
[2020-07-16] MEDS: carBAMazepine 100 MG Cap.ER PO SCH (09:19)
[2020-07-16] MEDS: Metoprolol Succinate 25 MG Tab.ER PO SCH (09:20)
[2020-07-16] MEDS: Fluticasone Propionate Nasal Spray 9.9 ML BOTTLE NASBOTH SCH (09:20)
[2020-07-16] MEDS: Docusate Sodium 100 MG Cap PO SCH ×2 (09:21→09:24)
[2020-07-16] MEDS: Polyethylene Glycol 3350 Powder 17 GM Packet PO SCH (09:21)
[2020-07-16] MEDS: Non-Formulary Medication 1 Each (Menthol [Biofreeze] 1 APPLIC) TOP SCH (09:21)
--- NOTE | 2020-07-16 10:19 | PCM.DCSUM1 ---
Discharge Summary - Hospital Course Brief History: Ms. Gamino is an 85 yo female who was directly admitted for hyponatremia after reporting confusion and a fall with routine labs showing a sodium of 123. - Discharge Data Discharge Date: 07/16/20 Discharge Disposition: DC/Tfer to SNF 03 Condition: Good - Referral to Home Health Primary Care Physician: Cheyenne Don MD - Discharge Diagnosis/Problem(s) (1) Hyponatremia SNOMED Code(s): 65665174 ICD Code: E87.1 - HYPO-OSMOLALITY AND HYPONATREMIA Status: Acute Current Visit: Yes (2) Dehydration SNOMED Code(s): 59314828 ICD Code: E86.0 - DEHYDRATION Status: Acute Current Visit: Yes (3) Side effects of vaccination SNOMED Code(s): 489148256 ICD Code: T50.Z95A - ADVERSE EFFECT OF VACCINES AND BIOLOGICAL SUBSTANCES, INIT Status: Acute Current Visit: Yes Qualifiers: Encounter type: initial encounter Qualified Code(s): T50.Z95A - Adverse effect of other vaccines and biological substances, initial encounter (4) Delirium SNOMED Code(s): 8994858 ICD Code: R41.0 - DISORIENTATION, UNSPECIFIED Status: Acute Current Visit: Yes (5) Atrial fibrillation SNOMED Code(s): 12227098 ICD Code: I48.91 - UNSPECIFIED ATRIAL FIBRILLATION Status: Chronic Current Visit: Yes Qualifiers: Atrial fibrillation type: longstanding persistent Qualified Code(s): I48.11 - Longstanding persistent atrial fibrillation (6) CAD (coronary artery disease) SNOMED Code(s): 05686223 ICD Code: I25.10 - ATHSCL HEART DISEASE OF [place] CORONARY ARTERY W/O ANG PCTRS Status: Chronic Current Visit: Yes Qualifiers: Coronary Disease-Associated Artery/Lesion type: [place] artery [place] vs. transplanted heart: [place] heart Associated angina: without angina Qualified Code(s): I25.10 - Atherosclerotic heart disease of [place] coronary artery without angina pectoris (7) CVA (cerebral vascular accident) SNOMED Code(s): 936520180 ICD Code: I63.9 - CEREBRAL INFARCTION, UNSPECIFIED Status: Chronic Current Visit: Yes Qualifiers: CVA mechanism: unspecified Qualified Code(s): I63.9 - Cerebral infarction, unspecified (8) Heart failure SNOMED Code(s): 76350166 ICD Code: I50.9 - HEART FAILURE, UNSPECIFIED Status: Chronic Current Visit: Yes (9) Hypercholesteremia SNOMED Code(s): 33806686 ICD Code: E78.00 - PURE HYPERCHOLESTEROLEMIA, UNSPECIFIED Status: Chronic Current Visit: Yes (10) Hypertension SNOMED Code(s): 20075517 ICD Code: I10 - ESSENTIAL (PRIMARY) HYPERTENSION Status: Chronic Current Visit: Yes Qualifiers: Hypertension type: essential hypertension Qualified Code(s): I10 - Essential (primary) hypertension (11) DM2 (diabetes mellitus, type 2) SNOMED Code(s): 63449495 ICD Code: E11.9 - TYPE 2 DIABETES MELLITUS WITHOUT COMPLICATIONS Status: Chronic Current Visit: Yes Qualifiers: Diabetes mellitus mcfp insulin use: without mcfp use Diabetes mellitus complication status: without complication Qualified Code(s): E11.9 - Type 2 diabetes mellitus without complications (12) Osteoarthritis SNOMED Code(s): 082412683 ICD Code: M19.90 - UNSPECIFIED OSTEOARTHRITIS, UNSPECIFIED SITE Status: Chronic Current Visit: Yes Qualifiers: Osteoarthritis location: multiple joints Osteoarthritis type: primary (13) Trigeminal neuralgia SNOMED Code(s): 31102557 ICD Code: G50.0 - TRIGEMINAL NEURALGIA Status: Chronic Current Visit: Yes (14) B12 deficiency SNOMED Code(s): 010496503 ICD Code: E53.8 - DEFICIENCY OF OTHER SPECIFIED B GROUP VITAMINS Status: Chronic Current Visit: Yes (15) Constipation SNOMED Code(s): 91392550 ICD Code: K59.00 - CONSTIPATION, UNSPECIFIED Status: Chronic Current Visit: Yes Qualifiers: Constipation type: unspecified constipation type Qualified Code(s): K59.00 - Constipation, unspecified (16) Allergic rhinitis SNOMED Code(s): 92607058 ICD Code: J30.9 - ALLERGIC RHINITIS, UNSPECIFIED Status: Chronic Current Visit: Yes Qualifiers: Allergic rhinitis trigger: unspecified Allergic rhinitis seasonality: unspecified Qualified Code(s): J30.9 - Allergic rhinitis, unspecified (17) GERD (gastroesophageal reflux disease) SNOMED Code(s): 299208750 ICD Code: K21.9 - GASTRO-ESOPHAGEAL REFLUX DISEASE WITHOUT ESOPHAGITIS Status: Chronic Current Visit: Yes - Patient Summary/Data Operative Procedure(s) Performed: none Complications: none Consults: Consultations 07/15/20 07:56 PT Evaluation and Treatment [CONS] Routine Labs Pending at D/C: none Recommended Follow-up Testing/Procedures: BMP, INR on 07/19/20 Planned Operative Procedure(s) after DC: none Hospital Course: The patient was admitted and started on IV fluids due to dehydration felt to be secondary to poor oral intake due to feeling unwell following her 2nd dose of COVID vaccine. Her sodium improved at an appropriate rate and is up to 133 today. IV fluids were discontinued last evening. Her appetite has been much better and she is eating and drinking well. She is feeling back to her usual self. A head CT was done on admission due to confusion and prior fall; this was negative. She has not had any headaches or neurologic symptoms. She walked with PT yesterday and today and they feel she would be appropriate to continue PT at the care center. INR was 1.2 today; however, was 2.5 on admit. Will continue current dosing and plan for repeat INR on Sunday. Her only medication change during her admission was d/c of lasix. She has had no leg swelling or shortness of breath. The rest of her electrolytes and her renal function have been normal/stable. The remainder of her hospitalization was uncomplicated. - Discharge Plan *PRESCRIPTION DRUG MONITORING PROGRAM REVIEWED*: No *COPY OF PRESCRIPTION DRUG MONITORING REPORT IN PATIENT LUPILLO: No Home Medications: Home Meds glipiZIDE [Glipizide ER] 20 mg PO DAILY 08/25/15 [History] metFORMIN HCl [Metformin HCl] 1,000 mg PO BIDMEALS 08/25/15 [History] Aspirin 81 mg PO BEDTIME 05/14/18 [History] Cyanocobalamin (Vitamin B-12) [B-12 Compliance] 1,500 mcg IM Q30D 05/14/18 [History] Gabapentin [Neurontin] 400 mg PO BID 05/14/18 [History] Magnesium Oxide 400 mg PO DAILY 05/14/18 [History] Meclizine [Antivert] 25 mg PO BID PRN 05/14/18 [History] Metoprolol Succinate [Toprol XL] 12.5 mg PO DAILY 05/14/18 [History] Pantoprazole Sodium [Protonix] 40 mg PO DAILY 05/14/18 [History] carBAMazepine [Carbamazepine ER] 400 mg PO Q12H PRN 05/14/18 [History] carBAMazepine [Equetro] 300 mg PO BID 05/14/18 [History] gemfibroziL [Lopid] 600 mg PO BID@0730,1730 05/14/18 [History] polyethylene glycoL 3350 [MiraLAX] 17 gm PO DAILY 05/14/18 [History] Warfarin [Coumadin] 10 mg PO DAILY #0 01/16/19 [Rx] Acetaminophen [Pain Reliever] 650 mg PO Q4HR PRN 07/14/20 [History] Cholecalciferol (Vitamin D3) [Vitamin D3] 50 mcg PO DAILY 07/14/20 [History] Docusate Sodium [Colace] 100 mg PO DAILY 07/14/20 [History] Fexofenadine [Jenelle] 60 mg PO DAILY 07/14/20 [History] Fluticasone Propionate [Flonase] 1 spray NASBOTH BID 07/14/20 [History] Menthol [Biofreeze] 1 applic TOP BID 07/14/20 [History] Rosuvastatin [Crestor] 5 mg PO MOWEFR@08 07/14/20 [History] Sodium Chloride [Saline Nasal [place]] 1 spray NASBOTH Q4H 07/14/20 [History] guaiFENesin/Dextromethorphan [Guaifenesin Dm Syrup] 10 ml PO Q4H PRN 07/14/20 [History] amLODIPine Besylate [Amlodipine Besylate] 10 mg PO DAILY 07/15/20 [History] - Discharge Summary/Plan Comment DC Time >30 min.: No - General Info Date of Service: 07/16/20 Subjective Update: 85 yo female hospital day #3 admitted for hyponatremia and dehydration. Is feeling well this morning. Appetite is back to normal. No nausea or vomiting. No headaches. She notes that she feels quite unsteady with walking but has not had any leg pain. - Review of Systems General: Reports: No Symptoms HEENT: Reports: No Symptoms Pulmonary: Reports: No Symptoms Cardiovascular: Reports: No Symptoms Gastrointestinal: Reports: No Symptoms Genitourinary: Reports: No Symptoms Musculoskeletal: Reports: No Symptoms Skin: Reports: No Symptoms Neurological: Reports: No Symptoms Psychiatric: Reports: No Symptoms - Patient Data Vitals - Most Recent: Last Vital Signs Temp 36.3 C 07/16/20 05:25 Pulse 60 07/16/20 09:20 Resp 16 07/16/20 02:16 BP 153/58 H 07/16/20 09:20 Pulse Ox 97 07/16/20 05:25 Weight - Most Recent: 77.973 kg I&O - Last 24 hours: Intake & Output 07/15/20 07/16/20 07/16/20 22:59 06:59 14:59 Intake Total 1200 260 Output Total 400 700 Balance 800 -700 260 Lab Results - Last 24 hrs: Laboratory Results - last 24 hr 07/15/20 07/16/20 07/16/20 Range/Units 14:02 06:20 06:20 WBC 4.2 (4.0-10.0) x10^3/uL RBC 3.30 L (4.00-5.50) x10^6/uL Hgb 9.7 L (12.0-16.0) g/dL Hct 29.0 L (33.0-47.0) % MCV 87.9 (78.0-93.0) fL MCH 29.4 (26.0-32.0) pg MCHC 33.4 (32.0-36.0) g/dL RDW Coeff of Tiffany 14.1 (10.0-15.0) % Plt Count 132 (130-400) x10^3/uL Add Manual Diff Yes Neutrophils % (Manual) 54 (50-80) % Band Neutrophils % 1 (0-6) % Lymphocytes % (Manual) 22 L (25-50) % Monocytes % (Manual) 19 H (2-11) % Eosinophils % (Manual) 2 (0-4) % Metamyelocytes % 2 H (0) % Nucleated RBCs 1 (0-5) /100WBC Platelet Estimate Adequate PT 13.4 H D (9.9-12.5) SEC INR 1.2 L (2.0-3.5) Sodium 130 L (136-145) mmol/L Potassium 4.1 (3.5-5.1) mmol/L Chloride 93 L (98-107) mmol/L Carbon Dioxide 28 (21-32) mmol/L Anion Gap 13.1 (5-15) mmol/L BUN 19 H (7-18) mg/dL Creatinine 0.9 (0.55-1.02) mg/dL Est Cr Clr Drug Dosing 36.14 mL/min Estimated GFR (MDRD) 59 Glucose 181 H (74-106) mg/dL Calcium 8.9 (8.5-10.1) mg/dL 07/16/20 Range/Units 06:20 WBC (4.0-10.0) x10^3/uL RBC (4.00-5.50) x10^6/uL Hgb (12.0-16.0) g/dL Hct (33.0-47.0) % MCV (78.0-93.0) fL MCH (26.0-32.0) pg MCHC (32.0-36.0) g/dL RDW Coeff of Tiffany (10.0-15.0) % Plt Count (130-400) x10^3/uL Add Manual Diff Neutrophils % (Manual) (50-80) % Band Neutrophils % (0-6) % Lymphocytes % (Manual) (25-50) % Monocytes % (Manual) (2-11) % Eosinophils % (Manual) (0-4) % Metamyelocytes % (0) % Nucleated RBCs (0-5) /100WBC Platelet Estimate PT (9.9-12.5) SEC INR (2.0-3.5) Sodium 133 L (136-145) mmol/L Potassium 4.1 (3.5-5.1) mmol/L Chloride 97 L (98-107) mmol/L Carbon Dioxide 25 (21-32) mmol/L Anion Gap 15.1 H (5-15) mmol/L BUN 18 (7-18) mg/dL Creatinine 0.8 (0.55-1.02) mg/dL Est Cr Clr Drug Dosing 40.66 mL/min Estimated GFR (MDRD) > 60 Glucose 185 H (74-106) mg/dL Calcium 8.8 (8.5-10.1) mg/dL MANFRED Results - Last 24 hrs: Microbiology 07/14/20 15:57 MRSA Surveillance Culture - Final Nares, Unspecified NO MRSA ISOLATED Med Orders - Current: Current Medications Acetaminophen (Tylenol) 650 mg PO Q4HR PRN PRN Reason: Pain/Fever Amlodipine Besylate (Norvasc) 10 mg PO DAILY АНДРЕЙ Last Admin: 07/16/20 09:19 Dose: 10 mg Documented by: Aspirin (Halfprin) 81 mg PO BEDTIME [facility] Last Admin: 07/15/20 20:11 Dose: 81 mg Documented by: Atorvastatin Calcium (Lipitor) 10 mg PO MOWEFR@08 [facility] Last Admin: 07/16/20 09:19 Dose: 10 mg Documented by: Carbamazepine (Tegretol Xr) 300 mg PO BID [facility] Last Admin: 07/16/20 09:19 Dose: 300 mg Documented by: Cholecalciferol (Vitamin D3) 50 mcg PO DAILY [facility] Last Admin: 07/16/20 09:19 Dose: 50 mcg Documented by: Docusate Sodium (Colace) 100 mg PO DAILY [facility] Last Admin: 07/16/20 09:24 Dose: 100 mg Documented by: Fluticasone Propionate (Fluticasone Propionate) 0 ml NASBOTH BID [facility] Last Admin: 07/16/20 09:20 Dose: 1 spray Documented by: Gabapentin (Neurontin) 400 mg PO BID [facility] Last Admin: 07/16/20 09:19 Dose: 400 mg Documented by: Magnesium Oxide (Magnesium Oxide) 400 mg PO DAILY [facility] Last Admin: 07/16/20 09:19 Dose: 400 mg Documented by: Metoprolol Succinate (Toprol Xl) 12.5 mg PO DAILY [facility] Last Admin: 07/16/20 09:20 Dose: 12.5 mg Documented by: Non-Formulary Medication (Fexofenadine) 60 mg PO DAILY [facility] Non-Formulary Medication (Menthol [Biofreeze]) 1 applic TOP BID [facility] Last Admin: 07/16/20 09:21 Dose: 1 applic Documented by: Pantoprazole Sodium (Protonix) 40 mg PO ACBREAKFAST [facility] Last Admin: 07/16/20 06:22 Dose: 40 mg Documented by: Polyethylene Glycol (Miralax) 17 gm PO DAILY [facility] Last Admin: 07/16/20 09:21 Dose: Not Given Documented by: Sodium Chloride ([place] Nasal [place]) 0 ml NASBOTH Q4H [facility] Last Admin: 07/16/20 09:20 Dose: 1 spray Documented by: Sodium Chloride (Saline Flush) 10 ml FLUSH ASDIRECTED PRN PRN Reason: Keep Vein Open Last Admin: 07/15/20 20:12 Dose: 10 ml Documented by: Warfarin Sodium (Coumadin) 10 mg PO DAILY@1999 [facility] Last Admin: 07/15/20 20:12 Dose: 10 mg Documented by: Discontinued Medications Sodium Chloride (Normal Saline) 1,000 mls @ 100 mls/hr IV ASDIRECTED [facility] Last Admin: 07/15/20 13:20 Dose: 100 mls/hr Documented by: - Exam General: Reports: Alert, Cooperative, No Acute Distress HEENT: Reports: Mucous Membr. Moist/[place] Neck: Reports: Supple, Trachea Midline, No Thyromegaly. Denies: Lymphadenopathy Lungs: Reports: Clear to Auscultation, Normal Respiratory Effort Cardiovascular: Reports: Regular Rate, No Murmurs, Irregular Rhythm GI/Abdominal Exam: Normal Bowel Sounds, Soft, Non-Tender, No Organomegaly, No Distention, No Mass Extremities: Non-Tender, No Pedal Edema, Normal Capillary Refill Skin: Reports: Warm, Dry, Intact Neurological: Reports: No New Focal Deficit Psy/Mental Status: Reports: Alert *Q Meaningful Use (DIS) - VTE *Q VTE Anticoagulation Contraindications: Med/TX Not Indicated/Need
== END 2020-07-16 11:25 | DRG 641 ==
LOC: VM.MS 14:45
PROVIDERS: ADMIT Family Medicine; ATTEND Family Medicine
DX: E87.1 Hypo-osmolality and hyponatremia (principal); I48.11 Longstanding persistent atrial fibrillation; E86.0 Dehydration; T50.Z95A Adverse effect of other vaccines and biological substances, initial encounter; R41.0 Disorientation, unspecified; I25.10 Atherosclerotic heart disease of native coronary artery without angina pectoris; I50.9 Heart failure, unspecified; E78.00 Pure hypercholesterolemia, unspecified; I11.0 Hypertensive heart disease with heart failure; E11.9 Type 2 diabetes mellitus without complications; M89.49 Other hypertrophic osteoarthropathy, multiple sites; G50.0 Trigeminal neuralgia; E53.8 Deficiency of other specified B group vitamins; K59.00 Constipation, unspecified; J30.9 Allergic rhinitis, unspecified; K21.9 Gastro-esophageal reflux disease without esophagitis; Z95.0 Presence of cardiac pacemaker; Z86.73 Personal history of transient ischemic attack (TIA), and cerebral infarction without residual deficits; E78.5 Hyperlipidemia, unspecified; D64.9 Anemia, unspecified; E53.9 Vitamin B deficiency, unspecified; M81.0 Age-related osteoporosis without current pathological fracture; Z86.16 Personal history of COVID-19; E83.42 Hypomagnesemia; Z98.890 Other specified postprocedural states; Z98.42 Cataract extraction status, left eye; Z98.41 Cataract extraction status, right eye; Z90.710 Acquired absence of both cervix and uterus; Z90.49 Acquired absence of other specified parts of digestive tract; Z20.822 Contact with and (suspected) exposure to COVID-19
CPT/HCPCS: 36415; 70450; 80048; 85025; 85610; 97116-GP; 97162-GP; 97530-GP; A9270-GY; J7030; U0002

== ENCOUNTER 2021-07-29 14:12 | Inpatient (IN) | payer MEDICARE, MEDICAID ==
[2021-07-29] MEDS ORDERED: Bisacodyl 5 MG Tab PO PRN (16:08)
[2021-07-29] MEDS ORDERED: oxyCODONE 5 MG Tab PO PRN (16:08)
[2021-07-29] MEDS: hydrALAZINE 10 MG Tab PO SCH ×2 (17:10→21:03)
[2021-07-29 19:36] LABS: ANION GAP 21.7 mmol/L (5-15)
[2021-07-29] MEDS: Sodium Chloride 0.9% 1,000 ML IV SCH ×2 (20:04→23:10)
[2021-07-29] MEDS ORDERED: Sodium Chloride 0.9% 1,000 ML IV SCH (20:45)
[2021-07-29] MEDS: Acetaminophen 500 MG Tab PO SCH (21:03)
[2021-07-29] MEDS: Fluticasone Propionate Nasal Spray 9.9 ML BOTTLE NASBOTH SCH (21:04)
[2021-07-29] MEDS: carBAMazepine 200 MG Tab PO SCH (21:04)
[2021-07-29] MEDS: Menthol/Methyl Salicylate 85 GM Tube TOP SCH (21:05)
[2021-07-30] MEDS: Sodium Chloride 0.9% 1,000 ML IV SCH ×2 (05:31→12:36)
[2021-07-30] MEDS: amLODIPine 10 MG Tab PO SCH (08:20)
[2021-07-30] MEDS: DULoxetine 20 MG Cap PO SCH (08:20)
[2021-07-30] MEDS: Folic Acid 1 MG Tab PO SCH (08:20)
[2021-07-30] MEDS: carBAMazepine 200 MG Tab PO SCH ×2 (08:20→21:39)
[2021-07-30] MEDS: Aspirin 81 MG Tab.Chew PO SCH (08:21)
[2021-07-30] MEDS: Acetaminophen 500 MG Tab PO SCH ×2 (08:21→21:38)
[2021-07-30] MEDS: hydrALAZINE 10 MG Tab PO SCH ×4 (08:21→21:38)
[2021-07-30] MEDS: Ferrous Sulfate 325 MG Tab PO SCH (08:21)
[2021-07-30] MEDS: Menthol/Methyl Salicylate 85 GM Tube TOP SCH ×2 (08:22→21:39)
[2021-07-30] MEDS: Fluticasone Propionate Nasal Spray 9.9 ML BOTTLE NASBOTH SCH ×2 (08:23→21:40)
[2021-07-30] MEDS: Metoprolol Succinate 25 MG Tab.ER PO SCH (08:35)
[2021-07-30 08:54] LABS: ANION GAP 18.3 mmol/L (5-15)
[2021-07-30] MEDS ORDERED: metroNIDAZOLE/Normal Saline 500 MG in Premix Bag 1 BAG IV SCH (10:00)
[2021-07-30] MEDS ORDERED: Glucagon,Human Recombinant 1 MG Vial IM PRN (10:18)
[2021-07-30] MEDS ORDERED: 50% Dextrose in Water 50 ML Syringe IVPUSH PRN (10:18)
[2021-07-30] MEDS ORDERED: Vancomycin 125 MG Cap PO SCH (12:00)
[2021-07-30] MEDS: Insulin Lispro 100 Units/ML 3 ML Vial SUBCUT SCH ×2 (12:07→18:17)
[2021-07-30] MEDS: Vancomycin 125 MG Cap PO SCH ×3 (12:13→21:38)
[2021-07-30 15:52] LABS: ANION GAP 16.6 mmol/L (5-15)
[2021-07-31] MEDS: Sodium Chloride 0.9% 1,000 ML IV SCH ×2 (01:46→07:50)
[2021-07-31] MEDS: Aspirin 81 MG Tab.Chew PO SCH (07:46)
[2021-07-31] MEDS: amLODIPine 10 MG Tab PO SCH (07:46)
[2021-07-31] MEDS: carBAMazepine 200 MG Tab PO SCH ×2 (07:46→19:55)
[2021-07-31] MEDS: Folic Acid 1 MG Tab PO SCH (07:47)
[2021-07-31] MEDS: Fluticasone Propionate Nasal Spray 9.9 ML BOTTLE NASBOTH SCH ×2 (07:47→19:56)
[2021-07-31] MEDS: DULoxetine 20 MG Cap PO SCH (07:47)
[2021-07-31] MEDS: Vancomycin 125 MG Cap PO SCH ×4 (07:47→19:50)
[2021-07-31] MEDS: Ferrous Sulfate 325 MG Tab PO SCH (07:47)
[2021-07-31] MEDS: Insulin Lispro 100 Units/ML 3 ML Vial SUBCUT SCH ×3 (07:48→17:19)
[2021-07-31] MEDS: Menthol/Methyl Salicylate 85 GM Tube TOP SCH ×2 (07:49→19:58)
[2021-07-31] MEDS: Metoprolol Succinate 25 MG Tab.ER PO SCH (07:49)
[2021-07-31] MEDS: Acetaminophen 500 MG Tab PO SCH ×2 (07:50→19:55)
[2021-07-31] MEDS: hydrALAZINE 10 MG Tab PO SCH ×5 (07:52→20:30)
[2021-07-31 08:24] LABS: ANION GAP 19.3 mmol/L (5-15)
[2021-07-31] MEDS: Furosemide 20 MG Tab PO SCH (11:42)
[2021-07-31] MEDS: Gabapentin 400 MG Cap PO SCH ×2 (11:43→19:55)
[2021-07-31] MEDS: Lisinopril 10 MG Tab PO SCH ×2 (11:43→19:53)
[2021-07-31] MEDS ORDERED: Gabapentin 400 MG Cap PO SCH (12:00)
[2021-07-31] MEDS ORDERED: Warfarin 5 MG Tab PO SCH (20:00)
[2021-08-01] MEDS: Sodium Chloride 0.9% 1,000 ML IV SCH (02:36)
[2021-08-01 06:59] LABS: CHLORIDE,CL 109 mmol/L (98-107); SODIUM,NA 138 mmol/L (136-145)
[2021-08-01 07:00] LABS: ANION GAP 14.6 mmol/L (5-15)
[2021-08-01] MEDS: Aspirin 81 MG Tab.Chew PO SCH (08:57)
[2021-08-01] MEDS: Ferrous Sulfate 325 MG Tab PO SCH (08:58)
[2021-08-01] MEDS: Gabapentin 400 MG Cap PO SCH ×2 (08:58→19:22)
[2021-08-01] MEDS: Vancomycin 125 MG Cap PO SCH ×4 (08:58→19:22)
[2021-08-01] MEDS: DULoxetine 20 MG Cap PO SCH (08:58)
[2021-08-01] MEDS: Acetaminophen 500 MG Tab PO SCH ×2 (08:58→19:22)
[2021-08-01] MEDS: carBAMazepine 200 MG Tab PO SCH ×2 (08:58→19:22)
[2021-08-01] MEDS: Furosemide 20 MG Tab PO SCH (08:59)
[2021-08-01] MEDS: Folic Acid 1 MG Tab PO SCH (08:59)
[2021-08-01] MEDS: Metoprolol Succinate 25 MG Tab.ER PO SCH (08:59)
[2021-08-01] MEDS: amLODIPine 10 MG Tab PO SCH (08:59)
[2021-08-01] MEDS: Lisinopril 10 MG Tab PO SCH ×2 (08:59→19:25)
[2021-08-01] MEDS: Menthol/Methyl Salicylate 85 GM Tube TOP SCH ×2 (09:06→19:26)
[2021-08-01] MEDS: Fluticasone Propionate Nasal Spray 9.9 ML BOTTLE NASBOTH SCH ×2 (09:06→19:26)
[2021-08-01] MEDS: hydrALAZINE 10 MG Tab PO SCH ×4 (09:07→19:22)
[2021-08-01] MEDS: Insulin Lispro 100 Units/ML 3 ML Vial SUBCUT SCH ×3 (09:24→17:33)
[2021-08-01] MEDS ORDERED: Warfarin 5 MG Tab PO SCH (20:00)
[2021-08-02 05:57] VITALS: PULSE 66
[2021-08-02 07:09] LABS: CHLORIDE,CL 106 mmol/L (98-107); SODIUM,NA 139 mmol/L (136-145)
[2021-08-02 07:13] LABS: ANION GAP 15.2 mmol/L (5-15)
[2021-08-02] MEDS: hydrALAZINE 10 MG Tab PO SCH ×2 (08:53→11:55)
[2021-08-02] MEDS: Lisinopril 10 MG Tab PO SCH (08:53)
[2021-08-02] MEDS: Metoprolol Succinate 25 MG Tab.ER PO SCH (08:54)
[2021-08-02] MEDS: Aspirin 81 MG Tab.Chew PO SCH (08:54)
[2021-08-02] MEDS: carBAMazepine 200 MG Tab PO SCH (08:55)
[2021-08-02] MEDS: amLODIPine 10 MG Tab PO SCH (08:55)
[2021-08-02] MEDS: Furosemide 20 MG Tab PO SCH (08:55)
[2021-08-02] MEDS: Ferrous Sulfate 325 MG Tab PO SCH (08:55)
[2021-08-02] MEDS: DULoxetine 20 MG Cap PO SCH (08:55)
[2021-08-02] MEDS: Folic Acid 1 MG Tab PO SCH (08:55)
[2021-08-02] MEDS: Vancomycin 125 MG Cap PO SCH ×2 (08:55→11:55)
[2021-08-02] MEDS: Gabapentin 400 MG Cap PO SCH (08:56)
[2021-08-02] MEDS: Acetaminophen 500 MG Tab PO SCH (08:56)
[2021-08-02] MEDS: Insulin Lispro 100 Units/ML 3 ML Vial SUBCUT SCH ×2 (08:59→11:53)
[2021-08-02] MEDS: Fluticasone Propionate Nasal Spray 9.9 ML BOTTLE NASBOTH SCH (09:00)
[2021-08-02] MEDS: Menthol/Methyl Salicylate 85 GM Tube TOP SCH (09:00)
[2021-08-02 11:56] VITALS: BP 161/92
[2021-08-02] MEDS ORDERED: Warfarin 5 MG Tab PO SCH (20:00)
== END 2021-08-02 12:05 | DRG 683 ==
LOC: VM.MS 14:23
PROVIDERS: ADMIT Family Medicine; ATTEND Family Medicine
DX: N17.9 Acute kidney failure, unspecified (principal); I48.11 Longstanding persistent atrial fibrillation; E86.0 Dehydration; E87.5 Hyperkalemia; R79.1 Abnormal coagulation profile; D50.9 Iron deficiency anemia, unspecified; E53.8 Deficiency of other specified B group vitamins; F43.20 Adjustment disorder, unspecified; G50.0 Trigeminal neuralgia; I10 Essential (primary) hypertension; E11.9 Type 2 diabetes mellitus without complications; E78.00 Pure hypercholesterolemia, unspecified; Z20.822 Contact with and (suspected) exposure to COVID-19; K59.00 Constipation, unspecified; K59.09 Other constipation; E78.5 Hyperlipidemia, unspecified; Z66 Do not resuscitate; K21.9 Gastro-esophageal reflux disease without esophagitis; M15.9 Polyosteoarthritis, unspecified; I25.10 Atherosclerotic heart disease of native coronary artery without angina pectoris; Z96.653 Presence of artificial knee joint, bilateral; J30.9 Allergic rhinitis, unspecified; N28.89 Other specified disorders of kidney and ureter; Z79.4 Long term (current) use of insulin; Z79.2 Long term (current) use of antibiotics; Z79.899 Other long term (current) drug therapy; Z79.1 Long term (current) use of non-steroidal anti-inflammatories (NSAID); Z95.0 Presence of cardiac pacemaker; Z79.82 Long term (current) use of aspirin; Z86.39 Personal history of other endocrine, nutritional and metabolic disease; Z86.16 Personal history of COVID-19; Z86.73 Personal history of transient ischemic attack (TIA), and cerebral infarction without residual deficits; Z90.89 Acquired absence of other organs; Z98.890 Other specified postprocedural states; Z98.42 Cataract extraction status, left eye; Z98.41 Cataract extraction status, right eye; Z90.49 Acquired absence of other specified parts of digestive tract; Z90.710 Acquired absence of both cervix and uterus
CPT/HCPCS: 36415; 74176; 80048; 82947; 83605; 85025; 85610; 87493; A9270-GY; J1815-GY; J7030; U0002

== ENCOUNTER 2021-10-11 10:38 | Inpatient (IN) | payer MEDICARE, MEDICAID ==
[2021-10-11] MEDS ORDERED: Sodium Chloride 0.9% 10 ML Syringe FLUSH PRN (11:13)
[2021-10-11] MEDS ORDERED: Piperacillin/Tazobactam 3.375 GM in Sodium Chloride 0.9% 100 ML IV ONE (11:44)
[2021-10-11] MEDS ORDERED: VANCOmycin 1.5 GM/300 ML 1.5 GM in Premix Bag 1 BAG IV ONE (11:45)
[2021-10-11] MEDS ORDERED: VANCOmycin 1.5 GM/300 ML 300 ML ONE ×2 (11:52→11:53)
[2021-10-11 12:03] LABS: PTT,PARTIAL THROMBOPLSTIN TIME 32.3 SEC (20.5-30.9)
[2021-10-11 12:12] LABS: CHLORIDE,CL 93 mmol/L (98-107)
[2021-10-11 12:13] LABS: ANION GAP 24.7 mmol/L (5-15); SODIUM,NA 128 mmol/L (136-145)
[2021-10-11 13:24] LABS: CORONAVIRUS COVID-19 NAA NEGATIVE (NEGATIVE); RESPIRATORY SYNCYTIAL VIR NAA NEGATIVE (NEGATIVE)
[2021-10-11] MEDS ORDERED: Ondansetron 4 MG/2 ML SDV IV PRN (17:07)
[2021-10-11] MEDS ORDERED: Ondansetron 4 MG Tab.DIS PO PRN (17:07)
[2021-10-11] MEDS ORDERED: oxyCODONE 5 MG Tab PO PRN (17:14)
[2021-10-11] MEDS ORDERED: Bisacodyl 5 MG Tab PO PRN (17:14)
[2021-10-11] MEDS ORDERED: Non-Formulary Medication 1 Each (Semaglutide [Ozempic] 1 MG/0.75 ML Pen.Injctr) SQ SCH (17:15)
[2021-10-11] MEDS ORDERED: Gemfibrozil 600 MG Tab PO SCH (17:30)
[2021-10-11] MEDS: Sodium Chloride 0.9% 1,000 ML IV SCH ×2 (20:20→23:35)
[2021-10-11] MEDS ORDERED: Sodium Chloride 0.9% 1,000 ML IV SCH (20:26)
[2021-10-11] MEDS ORDERED: cefTRIAXone 2 GM Vial IVPUSH SCH (21:00)
[2021-10-11] MEDS ORDERED: Gabapentin 400 MG Cap PO SCH (21:00)
[2021-10-11] MEDS ORDERED: carBAMazepine 200 MG Tab PO SCH (21:00)
[2021-10-11] MEDS ORDERED: Acetaminophen 500 MG Tab PO SCH (21:00)
[2021-10-11] MEDS ORDERED: Fluticasone Propionate Nasal Spray 9.9 ML BOTTLE NASBOTH SCH (21:00)
[2021-10-11] MEDS ORDERED: Iron Sucrose Complex 300 MG in Sodium Chloride 0.9% 250 ML IV ONE (21:35)
[2021-10-11] MEDS ORDERED: Iron Sucrose Complex 100 MG/5 ML SDV IVPUSH ONE (22:15)
[2021-10-12 02:25] VITALS: BP 99/53; PULSE 60
[2021-10-12] MEDS ORDERED: Pantoprazole 40 MG Tab.CR PO SCH (07:00)
[2021-10-12] MEDS ORDERED: Rosuvastatin 20 MG Tab PO SCH (08:00)
[2021-10-12] MEDS ORDERED: Ferrous Sulfate 325 MG Tab PO SCH (09:00)
[2021-10-12] MEDS ORDERED: Magnesium Oxide 400 MG Tab PO SCH (09:00)
[2021-10-12] MEDS ORDERED: Metoprolol Succinate 25 MG Tab.ER PO SCH (09:00)
[2021-10-12] MEDS ORDERED: glipiZIDE 10 MG Tab.ER PO SCH (09:00)
[2021-10-12] MEDS ORDERED: Polyethylene Glycol 3350 Powder 17 GM Packet PO SCH (09:00)
[2021-10-12] MEDS ORDERED: Furosemide 20 MG Tab PO SCH (09:00)
[2021-10-12] MEDS ORDERED: DULoxetine 20 MG Cap PO SCH (09:00)
[2021-10-12] MEDS ORDERED: Folic Acid 1 MG Tab PO SCH (09:00)
[2021-10-12] MEDS ORDERED: amLODIPine 10 MG Tab PO SCH (09:00)
[2021-10-12] MEDS ORDERED: Loratadine 10 MG Tab PO SCH (09:00)
[2021-10-12] MEDS ORDERED: metFORMIN 500 MG Tab PO SCH (09:00)
[2021-10-12] MEDS ORDERED: Docusate Sodium 100 MG Cap PO SCH (09:00)
[2021-10-12] MEDS ORDERED: Cholecalciferol (Vitamin D3) 25 MCG Tab PO SCH (09:00)
[2021-10-12] MEDS ORDERED: Aspirin 81 MG Tab.Chew PO SCH (09:00)
== END 2021-10-12 05:30 | disposition expired | DRG 872 ==
LOC: VM.ED 10:38 → VM.MS 13:05
PROVIDERS: ADMIT Nurse Practitioner Family; ATTEND Family Medicine
PROC: 30233N1 Transfusion of Nonautologous Red Blood Cells into Peripheral Vein, Percutaneous Approach (ICD-10-PCS; principal; 2021-10-11)
DX: N39.0 Urinary tract infection, site not specified (principal); A41.9 Sepsis, unspecified organism; N17.9 Acute kidney failure, unspecified; E87.1 Hypo-osmolality and hyponatremia; I48.20 Chronic atrial fibrillation, unspecified; I48.91 Unspecified atrial fibrillation; I69.351 Hemiplegia and hemiparesis following cerebral infarction affecting right dominant side; I44.2 Atrioventricular block, complete; N30.00 Acute cystitis without hematuria; E87.2 Acidosis; R65.20 Severe sepsis without septic shock; Z20.822 Contact with and (suspected) exposure to COVID-19; Z66 Do not resuscitate; E78.5 Hyperlipidemia, unspecified; I10 Essential (primary) hypertension; G50.0 Trigeminal neuralgia; I11.0 Hypertensive heart disease with heart failure; I50.9 Heart failure, unspecified; J30.9 Allergic rhinitis, unspecified; I25.10 Atherosclerotic heart disease of native coronary artery without angina pectoris; E78.00 Pure hypercholesterolemia, unspecified; K59.09 Other constipation; K57.90 Diverticulosis of intestine, part unspecified, without perforation or abscess without bleeding; K21.9 Gastro-esophageal reflux disease without esophagitis; M19.90 Unspecified osteoarthritis, unspecified site; M81.0 Age-related osteoporosis without current pathological fracture; E11.42 Type 2 diabetes mellitus with diabetic polyneuropathy; E83.42 Hypomagnesemia; E55.9 Vitamin D deficiency, unspecified; E53.8 Deficiency of other specified B group vitamins; E87.6 Hypokalemia; L65.9 Nonscarring hair loss, unspecified; Z96.659 Presence of unspecified artificial knee joint; D50.9 Iron deficiency anemia, unspecified; Z79.82 Long term (current) use of aspirin; Z79.84 Long term (current) use of oral hypoglycemic drugs; Z86.16 Personal history of COVID-19; Z79.02 Long term (current) use of antithrombotics/antiplatelets; Z79.899 Other long term (current) drug therapy; Z95.810 Presence of automatic (implantable) cardiac defibrillator; Z90.49 Acquired absence of other specified parts of digestive tract; Z90.710 Acquired absence of both cervix and uterus; Z98.49 Cataract extraction status, unspecified eye; Z98.890 Other specified postprocedural states; Z82.3 Family history of stroke; Z82.49 Family history of ischemic heart disease and other diseases of the circulatory system; Z85.41 Personal history of malignant neoplasm of cervix uteri; Z79.01 Long term (current) use of anticoagulants
CPT/HCPCS: 0241U; 36415; 36430; 51702; 71045; 80053; 81001; 82274; 82947; 83605; 83735; 84100; 84145; 84443; 84484; 85018; 85025; 85610; 85730; 86140; 86850; 86900; 86901; 86920; 86922; 87040; 87086; 87088; 87186; 93005; 96365; 99284; 99285-25; J0696; J1756; J2543; J7030; P9016